=== PATIENT | male | born 1985 | race Caucasian/White ===

== ENCOUNTER 2018-04-10 16:51 | Observation (INO) ==
[2018-04-10] MEDS ORDERED: Isovue-370 500 ML INFUS..BTL IV ONE (17:55)
--- NOTE | 2018-04-10 17:55 | Emergency Department Note ---
Disposition Clinical Impression: Abdominal pain Disposition: Still a Patient Condition: Fair Referrals: Hawa Parnell, HEAD BOOKKEEPER [Family Provider] - NONE,PCP [Primary Care Provider] - Forms: ED Satisfaction Letter, Work/School Release Abdominal Pain HPI - General Chief Complaint: ED Abdominal Pain Stated Complaint: abd pain Time Seen by Provider: 04/10/18 17:07 - History of Present Illness HPI Narrative: 33 YO M presenting with abdominal pain with history of IVDU (opiods and methamphetamines), possible hepatitis B diagnosis. Pain started 2 days ago rated, was midepigastric, rated 4-6/10, and constant. Patient states that it's worsened with liquid or oral intake. He has vomited around 5x, most recently clear. Patient states last drank alcohol 2 weeks ago drinking 5 shots of hard liquor. Last drug use was 2 months ago and was methamphetamine via IV route. He states he is having bowel movements but notes that he is more constipated than usual. He was seen by a urgent care facility today and they told him that his bilirubin was elevated, however no mention of labs were on his discharge summary. Patient denies any fever, night sweats. Pt Subjective Complaint: abdominal pain, flank pain, other Location: periumbilical Pain Scale: 6 Radiation: none Migration to: no migration Improves with: nothing Worsens with: eating Associated symptoms: Reports: nausea, vomiting, constipation Treatments prior to arrival: NSAIDs - Related Data Allergies Allergy/AdvReac Type Severity Reaction Status Date / Time No Known Allergies Allergy Verified 04/10/18 13:25 Constitutional: Reports: as per HPI Cardiovascular: Denies: chest pain, palpitations Gastrointestinal: Reports: as per HPI Abdominal Pain PMH - Past Medical History Medical history: Reports: hypertension Male Surgical History: Reports: no surgical history Psychiatric history: Reports: no psych history - Social History Smoking status: Current every day smoker Alcohol use: Reports: none Drug use: Reports: methamphetamine, IV Drug Use Physical Exam - General Limitations: no limitations General appearance: alert, in distress - Head Head exam: atraumatic - Chest Chest inspection: Present: normal inspection, symmetric chest wall rise - Respiratory Respiratory exam: Present: normal lung sounds bilaterally - Cardiovascular Cardiovascular exam: Present: regular rate, normal rhythm, normal heart sounds - Abdominal Exam Abdominal exam: Present: soft, tenderness, normal bowel sounds, Nick's sign. Absent: distention, rigidity Abdominal tenderness: Present: RUQ, LUQ - Neurological Exam Neurological exam: Present: alert, oriented X3 - Psychiatric Psychiatric exam: Present: normal affect, normal mood Course Course Narrative: 33 YO M presenting with abdominal pain - Positive nick's sign + RUQ abdominal pain + LUQ - ordered abd CT with contrast to rule out all causes of upper quadrant abdominal pain - Patient reports being told that he may have hepatitis B - will order hepatitis panel - Fluids ordered - patient hasn't drank more than sips of liquids for 2 days - lipase, lfts ordered - Reevaluation(s) Reevaluation #1: Urine dipstick came back suggesting need for urine culture - ordered. Reevaluation #2: Pending abdominal CT for ddx cholecystitis vs other upper quadrant pathology Vital Signs Temperature 97.9 F 04/10/18 17:22 Pulse Rate 83 04/10/18 17:22 Respiratory Rate 16 04/10/18 17:22 Blood Pressure 122/83 04/10/18 17:22 O2 Sat by Pulse Oximetry 98 04/10/18 17:22 Temperature 97.9 F 04/10/18 18:23 Pulse Rate 80 04/10/18 18:23 Respiratory Rate 18 04/10/18 18:23 Blood Pressure 131/92 04/10/18 18:23 O2 Sat by Pulse Oximetry 98 04/10/18 18:23 Oxygen Delivery Oxygen Delivery Room Air Abdominal Pain - Lab Data Result diagrams: 04/10/18 18:19 04/10/18 18:19 Lab Results 04/10/18 04/10/18 04/10/18 Range/Units 18:19 18:19 19:14 WBC 6.5 (4.3-11.1) K/mcL RBC 5.48 (4.19-5.50) M/mcL Hgb 16.7 (12.9-16.9) g/dL Hct 49.5 (37.5-50.1) % MCV 90.3 (83.0-100.0) fL MCH 30.5 (28.0-33.3) pg MCHC 33.7 (31.6-35.5) g/dL RDW 14.4 (11.5-14.5) % Plt Count 202 (140-400) K/mcL MPV 10.2 (9.4-12.4) fL Immature Gran % 0.5 (0-4) % Seg Neutrophils % 57.7 % Lymphocytes % 28.5 % Monocytes % 10.9 % Eosinophils % 1.8 % Basophils % 0.6 % Neutrophils # 3.8 (1.6-8.9) K/mcL Lymphocytes # 1.9 (0.6-4.6) K/mcL Monocytes # 0.7 (0.0-1.3) K/mcL Eosinophils # 0.1 (0.0-0.6) K/mcL Basophils # 0.0 (0.0-0.2) K/mcL Reactive Lymphocytes Present A (Not Present) Sodium 140 (136-145) mEq/L Potassium 3.8 (3.5-5.1) mEq/L Chloride 104 (98-107) mEq/L Carbon Dioxide 26 (23-29) mEq/L BUN 14 (6-20) mg/dL Creatinine 1.05 (0.70-1.30) mg/dL Est GFR ( Amer) > 60 (> 60) Est GFR (Non-Af Amer) > 60 (> 60) BUN/Creatinine Ratio 13 (6-26) Glucose 109 H (70-105) mg/dL Calculated Osmolality 291 (280-300) Calcium 9.2 (8.6-10.3) mg/dL Total Bilirubin 2.6 H (0.3-1.0) mg/dL Direct Bilirubin 1.6 H (0.0-0.2) mg/dL Indirect Bilirubin 1.0 (0.0-1.2) mg/dL AST 1488 H (13-39) Units/L ALT > 500 H (7-52) Units/L Alkaline Phosphatase 293 H (34-104) Units/L Troponin I < 0.03 (< 0.04) ng/mL Serum Total Protein 7.5 (6.4-8.9) g/dL Albumin 4.3 (3.5-5.7) g/dL Globulin 3.2 (2.4-3.5) g/dL Albumin/Globulin Ratio 1.3 (1.1-2.2) Lipase 23 (11-82) Units/L Urine Color [place] A (Yellow) Urine Clarity Cloudy A (Clear) Urine pH 5.5 (5.0-8.0) pH Units Ur Specific [place] 1.026 H (1.010-1.025) Urine Protein 30 H (Neg-Trace) mg/dL Urine Glucose (UA) Normal (Normal) mg/dL Urine Ketones Trace H (Negative) mg/dL Urine Blood Negative (Negative) Urine Nitrite Positive A (Negative) Urine Bilirubin Moderate H (Negative) Urine Urobilinogen Normal (Normal) mg/dL Ur Leukocyte Esterase Small H (Negative) Urine Microscopic WBC 0-3 (0-3) per hpf Ur Transition Epith Cell Few (None-Few) per hpf Urine Bacteria Few (None-Few) per hpf Urine Mucus Moderate H (Few) Ur Culture Indicated? YES A (NO) - EKG Data EKG attestation: Yes I reviewed and interpreted this EKG. EKG results narrative: EKG shows sinus rhythm. Normal ID, QRS, QT intervals. Left anterior fascicular block. RSR in V1 and V2 noted, most likely not pathologic - no T wave inversion or q or T wave inversion. EKG shows normal: sinus rhythm, QRS complexes ( ) Rate: normal Attestation Statement - Attestation Attestation: I, Iron Jang, examined this patient and my medical decision-making was reviewed with the FITNESS SUPERVISOR/PA/Advanced Practice Nurse/Resident Physician. I agree with the documented findings, disposition and treatment plan as described except to the extent set forth below. 33-year-old male presents emergency Department with concerns of epigastric and right upper quadrant abdominal pain. Patient states symptoms started quickly over the past few days, they were not related to by mouth intake. Patient reports a history of EtOH use however last time he drank was about 1-2 weeks ago. He has a history of previous IV drug use last use was about 2 months ago. Patient had hepatitis testing done 2 months ago which was negative for hepatitis A, B, C at that time. Patient reports subjective fever however he did not take his temperature prior to arrival. He is been unable to keep down by mouth intake over the past few days. No history of gallbladder disease in the past. No history of pancreatitis. CT of the abdomen and pelvis did not reveal acute abnormality. Patient had significant elevation of his AST and ALT as well as his alkaline phosphatase. Patient will be admitted for further evaluation of possible acute hepatitis.
[2018-04-10] MEDS ORDERED: 0.9 % Sodium Chloride 1,000 ML IVC ONE (17:58)
[2018-04-10] MEDS ORDERED: Ondansetron 4 MG/2 ML VIAL IVP ONE (18:25)
[2018-04-10 18:43] LABS: Basophils % 0.6 %; Eosinophils # 0.1 K/mcL (0.0-0.6); Eosinophils % 1.8 %; Hematocrit 49.5 % (37.5-50.1); Hemoglobin 16.7 g/dL (12.9-16.9); Immature Granulocytes % 0.5 % (0-4); Lymphocytes # 1.9 K/mcL (0.6-4.6); Lymphocytes % 28.5 %; Mean Corpuscular HGB Conc 33.7 g/dL (31.6-35.5); Mean Corpuscular Hemoglobin 30.5 pg (28.0-33.3); Mean Corpuscular Volume 90.3 fL (83.0-100.0); Mean Platelet Volume 10.2 fL (9.4-12.4); Monocytes # 0.7 K/mcL (0.0-1.3); Monocytes % 10.9 %; Neutrophils # 3.8 K/mcL (1.6-8.9); Platelet Count 202 K/mcL (140-400); Red Blood Count 5.48 M/mcL (4.19-5.50); Red Cell Distribution Width 14.4 % (11.5-14.5); Segmented Neutrophils % 57.7 %
[2018-04-10 18:58] LABS: Troponin I < 0.03 ng/mL (< 0.04)
[2018-04-10 19:07] LABS: Reactive Lymphocytes Present (Not Present)
[2018-04-10 19:14] LABS: Alanine Aminotransferase > 500 Units/L (7-52); Albumin 4.3 g/dL (3.5-5.7); Albumin/Globulin Ratio 1.3 (1.1-2.2); Alkaline Phosphatase 293 Units/L (34-104); Aspartate Amino Transferase 1488 Units/L (13-39); BUN/Creatinine Ratio 13 (6-26); Bilirubin,Direct 1.6 mg/dL (0.0-0.2); Bilirubin,Total 2.6 mg/dL (0.3-1.0); Blood Urea Nitrogen 14 mg/dL (6-20); Calcium 9.2 mg/dL (8.6-10.3); Carbon Dioxide 26 mEq/L (23-29); Chloride 104 mEq/L (98-107); Globulin 3.2 g/dL (2.4-3.5); Glucose 109 mg/dL (70-105); Lipase 23 Units/L (11-82); Osmolality,Calculated 291 (280-300); Potassium 3.8 mEq/L (3.5-5.1); Sodium 140 mEq/L (136-145); Total Protein 7.5 g/dL (6.4-8.9); eGFR For Non-African Americans > 60 (> 60)
[2018-04-10 19:26] LABS: Bilirubin,Urine Moderate (Negative); Blood,Urine Negative (Negative); Clarity,Urine Cloudy (Clear); Color,Urine Orange (Yellow); Glucose,Urine (UA) Normal (Normal); Ketones,Urine Trace mg/dL (Negative); Leukocyte Esterase,Urine Small (Negative); Nitrite,Urine Positive (Negative); PH,Urine 5.5 pH Units (5.0-8.0); Protein,Urine 30 mg/dL (Neg-Trace); Specific Gravity,Urine 1.026 (1.010-1.025); Urobilinogen,Urine Normal (Normal)
[2018-04-10 19:43] LABS: Bacteria,Urine Few per hpf (None-Few); Mucus,Urine Moderate (Few); WBC,Urine 0-3 per hpf (0-3)
[2018-04-10 19:44] LABS: Transitional Epi Cells,Urine Few per hpf (None-Few)
[2018-04-10] MEDS ORDERED: Ringers Solution, Lactated 1,000 ML IVC SCH (22:15)
[2018-04-10] MEDS ORDERED: *HR* OxyCODONE Immed Rel 5 MG TABLET PO PRN (22:15)
[2018-04-10] MEDS ORDERED: Ibuprofen 400 MG TABLET PO PRN (22:15)
[2018-04-10] MEDS ORDERED: *HR* Promethazine 25 MG/ML VIAL IVP PRN (22:18)
[2018-04-10] MEDS ORDERED: GI Cocktail 40 ML EACH PO ONE (22:18)
--- NOTE | 2018-04-10 22:39 | Internal Med History&Physical ---
Date of Encounter: 04/10/18 Time of Encounter: 22:37 Internal Medicine - H&P: HPI Chief complaint: abdominal pain Admitted From: Home Plans for Post Hospital Care: Home History of present illness: 33 year old man with a history of illicit drug use (opioids and methamphetamines but now recovering per family) who presents with the complaint of 2 days of abdominal pain that he localizes predominantly to his epigastrium that has been constant and associated with nausea and vomiting with an inability to tolerate PO. He states he has not drank alcohol for over a week and has not used illicit drugs in a few months. He reports that his urine is darker in color but without dysuria. He denies diarrhea and changes to stool color. He denies any sick contacts. He denies fever, chills and night sweats. On arrival here he was seen to have normal vital signs however his lab work was remarkable for a significant elevation in LFTs. A CT scan done did not show any anomalies. He is admitted for further monitoring. Past Med Surg Social Fam HX - Past Medical History Medical history: hypertension Psychiatric history: no psych history - Social History Smoking Status: Current every day smoker Smokeless Tobacco Status: (1 pack) Alcohol use: none Drug use: methamphetamine, IV Drug Use Internal Medicine - H&P: Meds 3 Allergy/AdvReac Type Severity Reaction Status Date / Time No Known Allergies Allergy Verified 04/10/18 13:25 All Systems PM: A 10-system review of systems was performed and is negative for pertinent findings except as documented above in the HPI. - Constitutional Vitals: Temp Pulse Resp BP Pulse Ox 97.9 F 80 18 131/92 98 04/10/18 18:23 04/10/18 18:23 04/10/18 18:23 04/10/18 18:23 04/10/18 18:23 Exam: Vitals: Reviewed General: Well developed man, in notable discomfort Skin: Flushed and warm. HEENT: Dry mucous membranes. No conjunctivae pallor. Neck: No lymphadenopathy. No JVD. No carotid bruits. No palpable thyroid. Chest: Normal thoracic expansion. Normal breath sounds. Clear to auscultation. Heart: Normal S1 & S2; rhythmic. No rubs or murmurs. Abdomen: Non-distended, soft and mildly tender to palpation in the epigastrium with no peritoneal reaction. Liver is normal in size. Spleen is not palpable. Extremities: No clubbing, cyanosis or edema. No calf tenderness. Normal distal pulses. Neurological: Awake, alert and oriented to person, place and time. No focal deficits. Psych: Affect appropriate. Internal Med - H&P Results - Labs CBC & Chem 7: 04/10/18 18:19 04/10/18 18:19 - Assessment and plan (1) Abnormal LFTs Current Visit: Yes Status: Acute Assessment and plan: Significant elevation noted in a more hepatocellular pattern more so that cholestatic. Correlates with the absent biliary findings on CT. Based on risk factors and I am concerned for an acute viral hepatitis, especially A given the recent epidemic and also questionable history of a pre-existing viral illess likely secondary to injection drug use. Will send hep viral panel Aggressive fluid resuscitation Avoid hepatotoxic meds Recheck LFTs and monitor INR. Check liver ultrasound. Further work up based on negativity of these results. (2) Abdominal pain Current Visit: Yes Status: Acute Assessment and plan: Likely related due inflammatory hepatic process. Will provide pain relief as needed and attempt to control symptoms. Further management as above. Qualifiers: Abdominal location: epigastric Qualified Code(s): R10.13 - Epigastric pain (3) Substance use disorder Current Visit: Yes Status: Chronic Assessment and plan: Will monitor clinically. Check UDS. Ongoing counseling provided. (4) Dehydration Current Visit: Yes Status: Acute Assessment and plan: Notable on clinical exam. IV LR ordered. - Time Spent With Patient Total time spent is greater than 50% in coordination of care (as documented) at patient's floor/unit and/or counseling patient: Greater than 35 minutes
[2018-04-10 22:51] LABS: Amphetamine Screen,Urine Negative ng/mL (Cutoff=1000); Barbiturate Screen,Urine Negative ng/mL (Cutoff=200); Benzodiazepines Screen,Urine Negative ng/mL (Cutoff=200); Cannabinoid Screen,Urine Negative ng/mL (Cutoff = 50); Cocaine Screen,Urine Negative ng/mL (Cutoff= 300); Opiate Screen,Urine Negative ng/mL (Cutoff=300); Phencyclidine Screen,Urine Negative ng/mL (Cutoff=25)
[2018-04-10] MEDS: Ringers Solution, Lactated 1,000 ML IVC SCH (23:58)
[2018-04-11] MEDS: Ringers Solution, Lactated 1,000 ML IVC SCH (04:48)
[2018-04-11 05:28] LABS: Basophils % 0.6 %; Eosinophils # 0.2 K/mcL (0.0-0.6); Hematocrit 41.6 % (37.5-50.1); Immature Granulocytes % 0.4 % (0-4); Lymphocytes # 1.7 K/mcL (0.6-4.6); Lymphocytes % 34.8 %; Mean Corpuscular HGB Conc 32.9 g/dL (31.6-35.5); Mean Corpuscular Hemoglobin 29.8 pg (28.0-33.3); Mean Corpuscular Volume 90.6 fL (83.0-100.0); Mean Platelet Volume 10.3 fL (9.4-12.4); Monocytes # 0.6 K/mcL (0.0-1.3); Monocytes % 12.6 %; Neutrophils # 2.4 K/mcL (1.6-8.9); Platelet Count 179 K/mcL (140-400); Red Blood Count 4.59 M/mcL (4.19-5.50); Red Cell Distribution Width 14.6 % (11.5-14.5); Segmented Neutrophils % 48.6 %
[2018-04-11 05:36] LABS: Hemoglobin 13.7 g/dL (12.9-16.9)
[2018-04-11 05:59] LABS: Platelet Estimate Normal (Normal); Reactive Lymphocytes Present (Not Present)
[2018-04-11] MEDS ORDERED: *HR* Heparin 5,000 UNIT/ML VIAL SQ SCH (06:00)
[2018-04-11 06:07] LABS: Alanine Aminotransferase > 500 Units/L (7-52); Albumin 3.3 g/dL (3.5-5.7); Albumin/Globulin Ratio 1.3 (1.1-2.2); Alkaline Phosphatase 223 Units/L (34-104); Aspartate Amino Transferase 1244 Units/L (13-39); BUN/Creatinine Ratio 14 (6-26); Bilirubin,Direct 1.9 mg/dL (0.0-0.2); Bilirubin,Total 2.9 mg/dL (0.3-1.0); Blood Urea Nitrogen 11 mg/dL (6-20); Carbon Dioxide 25 mEq/L (23-29); Chloride 107 mEq/L (98-107); Ethanol < 10 mg/dL (Less than 10); Globulin 2.5 g/dL (2.4-3.5); Glucose 87 mg/dL (70-105); Magnesium 2.1 mg/dL (1.6-2.6); Osmolality,Calculated 287 (280-300); Potassium 3.8 mEq/L (3.5-5.1); Sodium 139 mEq/L (136-145); Total Protein 5.8 g/dL (6.4-8.9); eGFR For Non-African Americans > 60 (> 60)
[2018-04-11] MEDS ORDERED: *HR* LORazepam 2 MG/ML VIAL IVP PRN (11:28)
[2018-04-11 11:37] VITALS: BP 119/68
--- NOTE | 2018-04-11 13:15 | Discharge Summary ---
- NOTES TO OUTPATIENT PROVIDER Notes to Outpatient Provider: please f/u with PCP in 2-3 days. Also please go for f/u lab work CMP in 2 days Date of Encounter: 04/11/18 Time of Encounter: 13:11 - Discharge Diagnosis (1) Acute hepatitis Priority: Primary Status: Acute (2) Abdominal pain Priority: Primary Status: Acute Qualifiers: Abdominal location: epigastric Qualified Code(s): R10.13 - Epigastric pain (3) Abnormal LFTs Priority: Primary Status: Acute (4) Substance use disorder Priority: Secondary Status: Chronic (5) Dehydration Priority: Secondary Status: Acute Hospital course: Mr. Mills is a 33 year old man with a history of illicit drug use (opioids and methamphetamines but now recovering per family and pt) who presented to ER with the complaint of 2 days of abdominal pain that he localizes predominantly to his epigastrium that has been constant and associated with nausea and vomiting with an inability to tolerate PO intake. He states he has not drank alcohol for over a week and has not used illicit drugs in a few months. In the ER his lab work was remarkable for a significant elevation in LFTs possible acute hepatitis. A CT scan of Abd done did not show any anomalies. His US of liver showed mild GB wall thickening, no signs of cholecystitis, no cholelithiasis noticed. His AST and ALT started coming down slowly, however his total Bili is still @ 2.9. His Viral hepatitis panel is still pending. Pt wanted to leave AMA , do not want to stay until his numbers get better. I did give him f/u labs Rx fro CMP in 2 days. Counseled not to drink alcohol, avoid too much tylenol / hepatotoxic meds. - Time Spent with Patient Total time spent providing and/or coordinating discharge services: - Discharge Medications Home Medications: No Known Home Drugs 04/10/18 [History] Allergies/Adverse Reactions: 3 Allergy/AdvReac Type Severity Reaction Status Date / Time No Known Allergies Allergy Verified 04/10/18 13:25 Date of admission: 04/10/18 22:10 Primary care physician: PCP NONE - Constitutional Vitals: Temp Pulse Resp BP Pulse Ox 98.3 F 69 16 119/68 95 04/11/18 11:35 04/11/18 11:35 04/11/18 11:35 04/11/18 11:35 04/11/18 11:35 General appearance: Present: cooperative, A&O X 3, no acute distress, answers questions appropriately Exam: see below - Head Head exam: Present: atraumatic, normal inspection - Neck Neck exam general surgery: Present: supple - Respiratory Respiratory exam: Present: decreased breath sounds. Absent: rales, respiratory distress, rhonchi, wheezes - Cardiovascular Cardiovascular exam: Present: RRR, +S1, +S2. Absent: tachycardia - GI/Abdominal GI/Abdominal exam: Present: normal bowel sounds, soft, tenderness (mild tenderness at epigastric region). Absent: rebound, rigid - Extremities Exam Extremities exam: Absent: calf tenderness, pedal edema, tenderness - Back Exam Back exam: Absent: CVA tenderness (L), CVA tenderness (R) - Neurological Exam Neurological exam: Present: alert, oriented X3 - Psychiatric Psychiatric exam: Present: normal affect, normal mood - Patient Status Disposition: Home, Self-Care Condition: Fair Overall status at discharge: patient is progressing back to baseline - Discharge Instructions Follow Up With: NONE,PCP [Primary Care Provider] - Hawa Parnell, BONE PROCESS OPERATOR [Family Provider] - - Diet and Activity Activity: increase activity as tolerated Diet: low fat, low cholesterol, low salt diet
[2018-04-12 03:01] LABS: Hepatitis B Core IgM Nonreactive (Nonreactive); Hepatitis B Surface Antigen Nonreactive (Nonreactive); Hepatitis C Virus Antibody Nonreactive (Nonreactive)
[2018-04-12 03:16] LABS: Hepatitis A Antibody IgM Reactive (Nonreactive)
--- NOTE | 2018-04-14 23:47 | Electrocardiograph Report ---
[place] [id number] Test Date: 2018-04-10 Pat Name: Valentín Mills Department: [id number] Room: 2A63 Gender: M Coroner Forensic Technician: : 1985 Requested By: Iron Jang Order Number: [id number] Reading MD: Jeanette Carmona Measurements Intervals [place] Rate: 85 P: 36 ME: 153 QRS: -47 QRSD: 92 T: 6 QT: 376 QTc: 448 Interpretive Statements Sinus rhythm Probable left atrial enlargement Left anterior fascicular block RSR' in V1 or V2, right VCD or RVH Electronically Signed On 04-14-2018 23:45:47 EDT by Jeanette Carmona
== END 2018-04-11 13:47 | disposition home or self-care (01) ==
LOC: 2ANU 16:51 → EMEROOARM 16:51 → SUATTDRO 22:10 → 2ANU 22:56
PROVIDERS: ADMIT Internal Medicine; ATTEND Family Medicine

== ENCOUNTER 2021-04-28 16:38 | Inpatient (IN) ==
[2021-04-28 18:07] LABS: Mean Corpuscular HGB Conc 32.1 g/dL (31.6-35.5); Mean Platelet Volume 8.9 fL (9.4-12.4); Red Cell Distribution Width 14.2 % (11.5-14.5)
[2021-04-28 18:09] LABS: Hematocrit 32.1 % (37.5-50.1); Hemoglobin 10.3 g/dL (12.9-16.9); Mean Corpuscular Hemoglobin 28.1 pg (28.0-33.3); Mean Corpuscular Volume 87.7 fL (83.0-100.0); Platelet Count 632 K/mcL (140-400); Red Blood Count 3.66 M/mcL (4.19-5.50); White Blood Count 29.7 K/mcL (4.3-11.1)
[2021-04-28 18:14] LABS: INR 1.3; Prothrombin Time 14.7 Seconds (9.4-12.1)
[2021-04-28 18:47] LABS: BUN/Creatinine Ratio 14 (6-26); Blood Urea Nitrogen 16 mg/dL (6-20); Calcium 8.8 mg/dL (8.6-10.3); Carbon Dioxide 28 mEq/L (23-29); Chloride 92 mEq/L (98-107); Glucose 177 mg/dL (70-105); Osmolality,Calculated 278 (280-300); Potassium 3.9 mEq/L (3.5-5.1); Sodium 131 mEq/L (136-145); eGFR For African Americans > 60 (> 60); eGFR For Non-African Americans > 60 (> 60)
[2021-04-28] MEDS ORDERED: Isovue-370 500 ML BOTTLE IVP ONE (19:03)
[2021-04-28] MEDS ORDERED: 0.9 % Sodium Chloride 1,000 ML IV ONE (19:20)
[2021-04-28 19:40] LABS: Lymphocytes # 1.8 K/mcL (0.6-4.6); Monocytes # 0.9 K/mcL (0.0-1.3); Platelet Estimate Marked Increase (Normal)
[2021-04-28 21:08] LABS: C-Reactive Protein > 300 mg/L (Less than 10); Thyroid Stimulating Hormone 1.208 mcIU/mL (0.340-5.600)
[2021-04-28] MEDS ORDERED: *HR* HYDROmorphone (PF) 1 MG/ML SYRINGE IVP ONE ×2 (21:25→23:28)
[2021-04-28] MEDS ORDERED: Cefepime HCl 2,000 MG in Water for inj. (sterile) 20 ML IVP ONE (22:09)
[2021-04-29] MEDS ORDERED: Gadolinium Contrast Agent (WT Based) IV PRN (00:57)
[2021-04-29] MEDS ORDERED: *HR* FentaNYL (PF) 100 MCG/2 ML VIAL IVP ONE ×2 (01:09→04:50)
[2021-04-29 01:42] LABS: Influenza A PCR Negative (Negative); Influenza B PCR Negative (Negative); Resp. Syncytial Virus PCR Negative (Negative); SARS-CoV-2 by PCR (In House) Negative (Negative)
[2021-04-29] MEDS ORDERED: MetroNIDAZOLE 500 MG/100 ML 500 MG/100 ML BAG IVPB ONE (02:37)
[2021-04-29] MEDS ORDERED: Naloxone 0.4 MG/ML INJ IVP PRN (03:37)
[2021-04-29] MEDS ORDERED: Ondansetron 4 MG/2 ML VIAL IVP PRN (03:37)
[2021-04-29] MEDS ORDERED: Ringers Solution, Lactated 1,000 ML IVC SCH (03:45)
[2021-04-29] MEDS ORDERED: Perflutren Lipid Microsphere 1.3 ML in 0.9 % Sodium Chloride 8.7 ML IVP PRN (03:46)
[2021-04-29] MEDS ORDERED: Morphine Sulfate 2 MG/ML SYRINGE IVP ONE (03:56)
[2021-04-29] MEDS ORDERED: Acetaminophen 325 MG TABLET PO PRN (03:57)
[2021-04-29] MEDS ORDERED: 0.9 % Sodium Chloride 1,000 ML IVC SCH (04:00)
[2021-04-29] MEDS: *HR* OxyCODONE Immed Rel 5 MG TABLET PO PRN ×3 (04:00→19:56)
[2021-04-29] MEDS ORDERED: *HR* LORazepam 2 MG/ML VIAL IVP PRN (04:51)
[2021-04-29 05:10] LABS: Alanine Aminotransferase 20 Units/L (7-52); Albumin 2.9 g/dL (3.5-5.7); Albumin/Globulin Ratio 0.7 (1.1-2.2); Alkaline Phosphatase 140 Units/L (34-104); Aspartate Amino Transferase 19 Units/L (13-39); BUN/Creatinine Ratio 17 (6-26); Bilirubin,Total 0.8 mg/dL (0.3-1.0); Blood Urea Nitrogen 14 mg/dL (6-20); Calcium 8.3 mg/dL (8.6-10.3); Carbon Dioxide 26 mEq/L (23-29); Chloride 96 mEq/L (98-107); Globulin 4.2 g/dL (2.4-3.5); Glucose 109 mg/dL (70-105); Osmolality,Calculated 273 (280-300); Potassium 3.6 mEq/L (3.5-5.1); Sodium 131 mEq/L (136-145); Total Protein 7.1 g/dL (6.4-8.9); eGFR For African Americans > 60 (> 60); eGFR For Non-African Americans > 60 (> 60)
[2021-04-29] MEDS: *HR* HYDROmorphone (PF) 1 MG/ML SYRINGE IVP PRN ×3 (08:54→20:55)
[2021-04-29] MEDS: *HR* Enoxaparin 40 MG/0.4 ML SYRINGE SQ SCH (08:59)
[2021-04-29] MEDS ORDERED: Cefepime HCl 2,000 MG in Water for inj. (sterile) 20 ML IVP SCH (11:00)
[2021-04-29] MEDS ORDERED: *HR* Midazolam HCl 2 MG/2 ML VIAL ONE (11:54)
[2021-04-29] MEDS ORDERED: Lidocaine Viscous Oral Soln 15 ML SOLUTION MM PRN (12:08)
[2021-04-29] MEDS ORDERED: 0.9 % Sodium Chloride 500 ML IVC ONE (12:08)
[2021-04-29] MEDS: Cefepime HCl 2,000 MG in Water for inj. (sterile) 20 ML IVP SCH ×2 (16:50→23:11)
[2021-04-29] MEDS ORDERED: Cefepime HCl 2,000 MG in Water for inj. (sterile) 20 ML IVP ONE (19:14)
[2021-04-29] MEDS ORDERED: *HR* LORazepam 2 MG/ML VIAL IVP ONE (23:28)
[2021-04-30 00:53] LABS: Amphetamine Screen,Urine Negative ng/mL (Cutoff=1000); Barbiturate Screen,Urine Negative ng/mL (Cutoff=200); Benzodiazepines Screen,Urine Positive ng/mL (Cutoff=200); Cannabinoid Screen,Urine Positive ng/mL (Cutoff = 50); Cocaine Screen,Urine Negative ng/mL (Cutoff= 300); Opiate Screen,Urine Positive ng/mL (Cutoff=300); Phencyclidine Screen,Urine Negative ng/mL (Cutoff=25)
[2021-04-30] MEDS: *HR* HYDROmorphone (PF) 1 MG/ML SYRINGE IVP PRN ×2 (00:58→06:25)
[2021-04-30] MEDS ORDERED: *HR* LORazepam 2 MG/ML VIAL IVP ONE (03:27)
[2021-04-30] MEDS: Cefepime HCl 2,000 MG in Water for inj. (sterile) 20 ML IVP SCH ×2 (06:08→21:02)
[2021-04-30] MEDS: *HR* Enoxaparin 40 MG/0.4 ML SYRINGE SQ SCH (06:08)
[2021-04-30] MEDS: *HR* OxyCODONE Immed Rel 5 MG TABLET PO PRN (09:04)
[2021-04-30 09:18] LABS: Hematocrit 27.8 % (37.5-50.1); Hemoglobin 9.2 g/dL (12.9-16.9); Mean Corpuscular HGB Conc 33.1 g/dL (31.6-35.5); Mean Corpuscular Volume 84.8 fL (83.0-100.0); Platelet Count 612 K/mcL (140-400); Red Blood Count 3.28 M/mcL (4.19-5.50); Red Cell Distribution Width 14.3 % (11.5-14.5); White Blood Count 26.5 K/mcL (4.3-11.1)
[2021-04-30 09:26] LABS: BUN/Creatinine Ratio 21 (6-26); Blood Urea Nitrogen 12 mg/dL (6-20); Carbon Dioxide 25 mEq/L (23-29); Chloride 97 mEq/L (98-107); Glucose 95 mg/dL (70-105); Osmolality,Calculated 270 (280-300); Potassium 3.1 mEq/L (3.5-5.1); Sodium 130 mEq/L (136-145); eGFR For African Americans > 60 (> 60); eGFR For Non-African Americans > 60 (> 60)
[2021-04-30] MEDS ORDERED: Lidocaine -MPF 2% 2 ML VIAL ONE (09:31)
[2021-04-30] MEDS ORDERED: *HR* Rocuronium Bromide 50 MG/5 ML VIAL ONE (09:31)
[2021-04-30] MEDS ORDERED: *HR* Midazolam HCl 5 MG/5 ML VIAL IVP ONE (09:32)
[2021-04-30] MEDS ORDERED: *HR* Propofol 200 MG/20 ML VIAL IVP ONE (09:32)
[2021-04-30] MEDS ORDERED: *HR* FentaNYL (PF) 100 MCG/2 ML VIAL ONE (09:32)
[2021-04-30] MEDS ORDERED: Ondansetron 4 MG/2 ML VIAL ONE (09:32)
[2021-04-30] MEDS ORDERED: *HR* HYDROMORPHONE 2 MG/ML VIAL ONE ×2 (10:22→12:39)
[2021-04-30] MEDS ORDERED: Albuterol 2.5 MG/3 ML NEBULIZER IH PRN (10:25)
[2021-04-30] MEDS ORDERED: *HR* OxyCODONE Immed Rel 5 MG TABLET PO PRN (10:25)
[2021-04-30] MEDS ORDERED: Ketorolac 15 MG/ML VIAL IVP PRN (10:25)
[2021-04-30] MEDS ORDERED: Ondansetron 4 MG/2 ML VIAL IVP PRN ×2 (10:25→15:48)
[2021-04-30] MEDS ORDERED: Acetaminophen IV 1,000 MG/100 ML BAG IVPB ONE (10:27)
[2021-04-30 10:42] LABS: HIV-1&2 Antibody & p24 Ag Nonreactive (Nonreactive); Lymphocytes # 1.6 K/mcL (0.6-4.6); Monocytes # 1.6 K/mcL (0.0-1.3); Neutrophils # 23.3 K/mcL (1.6-8.9); Platelet Estimate Increased (Normal)
[2021-04-30] MEDS ORDERED: *HR* HYDROmorphone (PF) 1 MG/ML SYRINGE IVP PRN (10:55)
[2021-04-30] MEDS ORDERED: *HR* OxyCODONE/APAP 10/325 TABLET PO PRN (10:55)
[2021-04-30] MEDS ORDERED: Dexmedetomidine HCl 400 MCG/100 ML MLS IVC ONE (10:56)
[2021-04-30] MEDS ORDERED: Albumin Human 5% 25.0 GM/500 ML IV.SOLN ONE (10:56)
[2021-04-30] MEDS ORDERED: Lidocaine HCL 4 ML Topical Solution (Laryng-O-Jet Kit Sterile Pak) TP ONE (11:14)
[2021-04-30] MEDS ORDERED: *HR* OxyCODONE/APAP 10/325 TABLET PO SCH (12:00)
[2021-04-30] MEDS: *HR* HYDROmorphone PF 0.5 MG/0.5 ML SYRINGE IVP PRN ×4 (13:08→14:23)
[2021-04-30 15:28] LABS: Hepatitis C Virus Antibody Reactive (Nonreactive)
[2021-04-30] MEDS ORDERED: Naloxone 0.4 MG/ML INJ IVP PRN (15:48)
[2021-04-30] MEDS: Ipratropium/Albuterol Neb 3 ML IH SCH ×3 (16:19→23:47)
[2021-04-30] MEDS: Gabapentin 400 MG CAPSULE PO SCH ×2 (16:37→19:26)
[2021-04-30] MEDS: *HR* OxyCODONE/APAP 10/325 TABLET PO PRN ×2 (16:37→21:01)
[2021-04-30] MEDS: *HR* Heparin 5,000 UNIT/ML VIAL SQ SCH ×2 (16:37→21:01)
[2021-04-30] MEDS: 0.9 % Sodium Chloride 1,000 ML IVC SCH (16:38)
[2021-04-30] MEDS ORDERED: Vancomycin 1,750 MG/517.5 ML IV.SOLN IVPB SCH (17:00)
[2021-04-30] MEDS: Ketorolac 15 MG/ML VIAL IVP SCH ×2 (18:25→23:31)
[2021-04-30] MEDS: Sennosides/Docusate Sodium TABLET PO SCH (19:26)
[2021-04-30] MEDS: Famotidine 20 MG TABLET PO SCH (19:27)
[2021-04-30] MEDS: *HR* HYDROmorphone 2 MG/ML SYRINGE IVP PRN ×2 (19:28→23:31)
[2021-04-30] MEDS: Dexmedetomidine HCl 400 MCG/100 ML MLS IVC SCH (21:04)
[2021-04-30] MEDS: *HR* Acetylcysteine 20% 600 MG/3 ML ORAL SYRINGE PO SCH (21:10)
[2021-05-01] MEDS: *HR* OxyCODONE/APAP 10/325 TABLET PO PRN ×4 (03:08→20:05)
[2021-05-01] MEDS: Ipratropium/Albuterol Neb 3 ML IH SCH ×6 (03:55→23:23)
[2021-05-01] MEDS: *HR* HYDROmorphone 2 MG/ML SYRINGE IVP PRN ×4 (04:42→22:41)
[2021-05-01 05:58] LABS: Basophils % 0.1 %; Immature Granulocytes % 1.8 % (0-4); Lymphocytes % 12.7 %; Mean Corpuscular HGB Conc 33.3 g/dL (31.6-35.5); Mean Corpuscular Hemoglobin 27.9 pg (28.0-33.3); Mean Corpuscular Volume 83.6 fL (83.0-100.0); Mean Platelet Volume 9.1 fL (9.4-12.4); Monocytes # 1.2 K/mcL (0.0-1.3); Monocytes % 7.6 %; Neutrophils # 12.4 K/mcL (1.6-8.9); Platelet Count 622 K/mcL (140-400); Red Blood Count 3.59 M/mcL (4.19-5.50); Red Cell Distribution Width 14.3 % (11.5-14.5); Segmented Neutrophils % 77.8 %
[2021-05-01] MEDS: Cefepime HCl 2,000 MG in Water for inj. (sterile) 20 ML IVP SCH ×3 (06:03→22:41)
[2021-05-01] MEDS: *HR* Heparin 5,000 UNIT/ML VIAL SQ SCH ×3 (06:04→22:42)
[2021-05-01] MEDS: Ketorolac 15 MG/ML VIAL IVP SCH ×3 (06:04→17:26)
[2021-05-01 06:25] LABS: BUN/Creatinine Ratio 29 (6-26); Blood Urea Nitrogen 15 mg/dL (6-20); Calcium 8.1 mg/dL (8.6-10.3); Carbon Dioxide 24 mEq/L (23-29); Chloride 101 mEq/L (98-107); Glucose 131 mg/dL (70-105); Osmolality,Calculated 279 (280-300); Phosphorous 4.2 mg/dL (2.7-4.5); Potassium 3.7 mEq/L (3.5-5.1); Sodium 133 mEq/L (136-145); eGFR For African Americans > 60 (> 60); eGFR For Non-African Americans > 60 (> 60)
[2021-05-01] MEDS: Gabapentin 400 MG CAPSULE PO SCH ×3 (07:47→20:05)
[2021-05-01] MEDS: Sennosides/Docusate Sodium TABLET PO SCH ×2 (07:47→20:05)
[2021-05-01] MEDS: Famotidine 20 MG TABLET PO SCH ×2 (07:47→20:05)
[2021-05-01] MEDS: *HR* Acetylcysteine 20% 600 MG/3 ML ORAL SYRINGE PO SCH ×2 (07:47→20:08)
[2021-05-01] MEDS: 0.9 % Sodium Chloride 1,000 ML IVC SCH ×2 (09:27→22:42)
[2021-05-01] MEDS: lisinopriL 5 MG TABLET PO SCH (09:28)
[2021-05-01] MEDS: Vancomycin 1,750 MG/517.5 ML IV.SOLN IVPB SCH ×2 (11:05→17:26)
[2021-05-01] MEDS: Dexmedetomidine HCl 400 MCG/100 ML MLS IVC SCH (12:10)
[2021-05-02] MEDS: *HR* OxyCODONE/APAP 10/325 TABLET PO PRN ×5 (00:33→23:00)
[2021-05-02] MEDS: Ketorolac 15 MG/ML VIAL IVP SCH ×5 (00:33→23:00)
[2021-05-02] MEDS: Dexmedetomidine HCl 400 MCG/100 ML MLS IVC SCH ×3 (02:05→23:04)
[2021-05-02] MEDS: Vancomycin 1,750 MG/517.5 ML IV.SOLN IVPB SCH (02:24)
[2021-05-02] MEDS: *HR* HYDROmorphone 2 MG/ML SYRINGE IVP PRN ×5 (03:13→20:12)
[2021-05-02] MEDS: Ipratropium/Albuterol Neb 3 ML IH SCH ×6 (04:18→23:42)
[2021-05-02 04:20] LABS: BUN/Creatinine Ratio 18 (6-26); Blood Urea Nitrogen 12 mg/dL (6-20); Calcium 7.6 mg/dL (8.6-10.3); Carbon Dioxide 24 mEq/L (23-29); Chloride 108 mEq/L (98-107); Glucose 96 mg/dL (70-105); Osmolality,Calculated 286 (280-300); Potassium 3.6 mEq/L (3.5-5.1); Sodium 138 mEq/L (136-145); eGFR For African Americans > 60 (> 60); eGFR For Non-African Americans > 60 (> 60)
[2021-05-02 04:32] LABS: Basophils # 0.1 K/mcL (0.0-0.2); Basophils % 0.6 %; Eosinophils # 0.1 K/mcL (0.0-0.6); Eosinophils % 0.5 %; Hematocrit 31.6 % (37.5-50.1); Hemoglobin 9.8 g/dL (12.9-16.9); Immature Granulocytes % 4.4 % (0-4); Lymphocytes % 21.1 %; Mean Corpuscular Hemoglobin 27.3 pg (28.0-33.3); Mean Platelet Volume 9.2 fL (9.4-12.4); Monocytes # 1.4 K/mcL (0.0-1.3); Monocytes % 9.9 %; Neutrophils # 9.2 K/mcL (1.6-8.9); Platelet Count 591 K/mcL (140-400); Red Blood Count 3.59 M/mcL (4.19-5.50); Red Cell Distribution Width 14.6 % (11.5-14.5); Segmented Neutrophils % 63.5 %; White Blood Count 14.4 K/mcL (4.3-11.1)
[2021-05-02] MEDS: Cefepime HCl 2,000 MG in Water for inj. (sterile) 20 ML IVP SCH ×3 (04:44→22:59)
[2021-05-02] MEDS: *HR* Heparin 5,000 UNIT/ML VIAL SQ SCH ×3 (04:44→22:59)
[2021-05-02] MEDS: lisinopriL 5 MG TABLET PO SCH (07:28)
[2021-05-02] MEDS: Sennosides/Docusate Sodium TABLET PO SCH ×2 (07:28→20:12)
[2021-05-02] MEDS: Gabapentin 400 MG CAPSULE PO SCH ×3 (07:28→20:12)
[2021-05-02] MEDS: Famotidine 20 MG TABLET PO SCH ×2 (07:28→20:12)
[2021-05-02] MEDS: Vancomycin 1,500 MG/265 ML IV.SOLN IVPB SCH ×2 (12:05→20:11)
[2021-05-02] MEDS: *HR* Acetylcysteine 20% 600 MG/3 ML ORAL SYRINGE PO SCH ×2 (13:10→20:12)
[2021-05-03 01:36] LABS: Alanine Aminotransferase 28 Units/L (7-52); Albumin 2.3 g/dL (3.5-5.7); Albumin/Globulin Ratio 0.7 (1.1-2.2); Alkaline Phosphatase 142 Units/L (34-104); Aspartate Amino Transferase 33 Units/L (13-39); BUN/Creatinine Ratio 14 (6-26); Bilirubin,Indirect 0.2 mg/dL (0.0-1.0); Bilirubin,Total 0.2 mg/dL (0.3-1.0); Blood Urea Nitrogen 8 mg/dL (6-20); Calcium 7.6 mg/dL (8.6-10.3); Carbon Dioxide 22 mEq/L (23-29); Chloride 105 mEq/L (98-107); Globulin 3.5 g/dL (2.4-3.5); Glucose 130 mg/dL (70-105); Magnesium 1.8 mg/dL (1.6-2.6); Osmolality,Calculated 282 (280-300); Potassium 3.3 mEq/L (3.5-5.1); Sodium 136 mEq/L (136-145); Total Protein 5.8 g/dL (6.4-8.9); eGFR For African Americans > 60 (> 60); eGFR For Non-African Americans > 60 (> 60)
[2021-05-03 01:49] LABS: Basophils # 0.1 K/mcL (0.0-0.2); Basophils % 0.8 %; Eosinophils # 0.2 K/mcL (0.0-0.6); Hematocrit 29.1 % (37.5-50.1); Hemoglobin 9.1 g/dL (12.9-16.9); Immature Granulocytes % 8.4 % (0-4); Lymphocytes # 3.1 K/mcL (0.6-4.6); Lymphocytes % 19.7 %; Mean Corpuscular HGB Conc 31.3 g/dL (31.6-35.5); Mean Corpuscular Hemoglobin 26.6 pg (28.0-33.3); Mean Corpuscular Volume 85.1 fL (83.0-100.0); Monocytes # 1.5 K/mcL (0.0-1.3); Monocytes % 9.4 %; Neutrophils # 9.4 K/mcL (1.6-8.9); Platelet Count 676 K/mcL (140-400); Red Blood Count 3.42 M/mcL (4.19-5.50); Red Cell Distribution Width 14.6 % (11.5-14.5); Segmented Neutrophils % 60.7 %; White Blood Count 15.5 K/mcL (4.3-11.1)
[2021-05-03] MEDS: Ipratropium/Albuterol Neb 3 ML IH SCH ×6 (03:27→23:37)
[2021-05-03] MEDS: *HR* HYDROmorphone 2 MG/ML SYRINGE IVP PRN ×6 (03:52→21:16)
[2021-05-03] MEDS: Vancomycin 1,500 MG/265 ML IV.SOLN IVPB SCH ×3 (03:52→18:56)
[2021-05-03] MEDS: *HR* OxyCODONE/APAP 10/325 TABLET PO PRN ×3 (06:01→18:55)
[2021-05-03] MEDS: Ketorolac 15 MG/ML VIAL IVP SCH ×3 (06:01→18:05)
[2021-05-03] MEDS: Cefepime HCl 2,000 MG in Water for inj. (sterile) 20 ML IVP SCH ×3 (06:01→21:15)
[2021-05-03] MEDS: *HR* Heparin 5,000 UNIT/ML VIAL SQ SCH ×3 (06:01→21:16)
[2021-05-03] MEDS: lisinopriL 5 MG TABLET PO SCH (07:17)
[2021-05-03] MEDS: Sennosides/Docusate Sodium TABLET PO SCH ×2 (07:17→20:36)
[2021-05-03] MEDS: Gabapentin 400 MG CAPSULE PO SCH ×3 (07:17→20:37)
[2021-05-03] MEDS: *HR* Acetylcysteine 20% 600 MG/3 ML ORAL SYRINGE PO SCH ×2 (07:17→20:36)
[2021-05-03] MEDS: Famotidine 20 MG TABLET PO SCH ×2 (07:17→20:37)
[2021-05-03] MEDS: Dexmedetomidine HCl 400 MCG/100 ML MLS IVC SCH ×2 (11:10→20:36)
[2021-05-04] MEDS: Ketorolac 15 MG/ML VIAL IVP SCH ×4 (00:44→16:56)
[2021-05-04] MEDS: *HR* OxyCODONE/APAP 10/325 TABLET PO PRN ×2 (00:48→06:45)
[2021-05-04] MEDS: Dexmedetomidine HCl 400 MCG/100 ML MLS IVC SCH ×3 (01:13→16:25)
[2021-05-04 01:46] LABS: Eosinophils # 0.4 K/mcL (0.0-0.6); Hematocrit 31.3 % (37.5-50.1); Hemoglobin 9.9 g/dL (12.9-16.9); Mean Corpuscular HGB Conc 31.6 g/dL (31.6-35.5); Mean Corpuscular Hemoglobin 27.4 pg (28.0-33.3); Mean Corpuscular Volume 86.7 fL (83.0-100.0); Mean Platelet Volume 9.1 fL (9.4-12.4); Platelet Count 741 K/mcL (140-400); Red Blood Count 3.61 M/mcL (4.19-5.50); Red Cell Distribution Width 14.6 % (11.5-14.5); White Blood Count 18.3 K/mcL (4.3-11.1)
[2021-05-04 02:01] LABS: BUN/Creatinine Ratio 21 (6-26); Blood Urea Nitrogen 10 mg/dL (6-20); Carbon Dioxide 26 mEq/L (23-29); Chloride 106 mEq/L (98-107); Glucose 95 mg/dL (70-105); Magnesium 1.9 mg/dL (1.6-2.6); Osmolality,Calculated 285 (280-300); Potassium 3.8 mEq/L (3.5-5.1); Sodium 138 mEq/L (136-145); eGFR For African Americans > 60 (> 60); eGFR For Non-African Americans > 60 (> 60)
[2021-05-04 02:06] LABS: Lymphocytes # 5.1 K/mcL (0.6-4.6); Monocytes # 1.1 K/mcL (0.0-1.3); Platelet Estimate Marked Increase (Normal)
[2021-05-04] MEDS: Vancomycin 1,500 MG/265 ML IV.SOLN IVPB SCH ×3 (02:50→20:14)
[2021-05-04] MEDS: Ipratropium/Albuterol Neb 3 ML IH SCH ×6 (03:46→22:31)
[2021-05-04] MEDS: *HR* HYDROmorphone 2 MG/ML SYRINGE IVP PRN ×4 (03:46→20:32)
[2021-05-04] MEDS: *HR* Heparin 5,000 UNIT/ML VIAL SQ SCH ×3 (05:50→20:21)
[2021-05-04] MEDS: Sennosides/Docusate Sodium TABLET PO SCH ×2 (07:40→20:16)
[2021-05-04] MEDS: Gabapentin 400 MG CAPSULE PO SCH ×3 (07:40→20:16)
[2021-05-04] MEDS: Famotidine 20 MG TABLET PO SCH ×2 (07:40→20:16)
[2021-05-04] MEDS: lisinopriL 5 MG TABLET PO SCH (07:41)
[2021-05-04] MEDS: *HR* Acetylcysteine 20% 600 MG/3 ML ORAL SYRINGE PO SCH (07:42)
[2021-05-04] MEDS ORDERED: *HR* FentaNYL PATCH 50 MCG PATCH TD SCH (07:45)
[2021-05-04] MEDS ORDERED: Benzocaine 20% 12 APPL GEL..GRAM. TP PRN (15:40)
[2021-05-04] MEDS: Cefepime HCl 2,000 MG in 0.9 % Sodium Chloride Mini Bag 100 ML IVPB SCH (16:21)
[2021-05-05] MEDS: Cefepime HCl 2,000 MG in 0.9 % Sodium Chloride Mini Bag 100 ML IVPB SCH ×4 (01:12→23:32)
[2021-05-05] MEDS: *HR* Acetylcysteine 20% 600 MG/3 ML ORAL SYRINGE PO SCH ×3 (01:21→20:27)
[2021-05-05] MEDS: *HR* HYDROmorphone 2 MG/ML SYRINGE IVP PRN ×4 (02:30→19:51)
[2021-05-05] MEDS: Vancomycin 1,500 MG/265 ML IV.SOLN IVPB SCH ×3 (03:23→19:50)
[2021-05-05 03:31] LABS: Eosinophils # 0.4 K/mcL (0.0-0.6); Hematocrit 29.1 % (37.5-50.1); Hemoglobin 9.2 g/dL (12.9-16.9); Mean Corpuscular HGB Conc 31.6 g/dL (31.6-35.5); Mean Corpuscular Hemoglobin 27.7 pg (28.0-33.3); Mean Corpuscular Volume 87.7 fL (83.0-100.0); Mean Platelet Volume 9.1 fL (9.4-12.4); Platelet Count 800 K/mcL (140-400); Red Blood Count 3.32 M/mcL (4.19-5.50); Red Cell Distribution Width 15.4 % (11.5-14.5); White Blood Count 20.5 K/mcL (4.3-11.1)
[2021-05-05 03:44] LABS: BUN/Creatinine Ratio 18 (6-26); Blood Urea Nitrogen 11 mg/dL (6-20); Carbon Dioxide 24 mEq/L (23-29); Chloride 104 mEq/L (98-107); Glucose 85 mg/dL (70-105); Magnesium 1.8 mg/dL (1.6-2.6); Osmolality,Calculated 279 (280-300); Potassium 3.9 mEq/L (3.5-5.1); Sodium 135 mEq/L (136-145); eGFR For African Americans > 60 (> 60); eGFR For Non-African Americans > 60 (> 60)
[2021-05-05 03:54] LABS: Anisocytosis 1+ (Not Present); Lymphocytes # 2.9 K/mcL (0.6-4.6); Monocytes # 0.4 K/mcL (0.0-1.3)
[2021-05-05 03:55] LABS: Platelet Estimate Increased (Normal)
[2021-05-05] MEDS: Dexmedetomidine HCl 400 MCG/100 ML MLS IVC SCH ×2 (04:11→12:10)
[2021-05-05] MEDS: Ipratropium/Albuterol Neb 3 ML IH SCH ×5 (04:37→20:20)
[2021-05-05] MEDS: *HR* Heparin 5,000 UNIT/ML VIAL SQ SCH ×3 (06:11→20:29)
[2021-05-05] MEDS ORDERED: Gadolinium Contrast Agent (WT Based) IV PRN (07:53)
[2021-05-05] MEDS: Famotidine 20 MG TABLET PO SCH ×2 (08:24→20:27)
[2021-05-05] MEDS: Gabapentin 400 MG CAPSULE PO SCH ×3 (08:24→20:27)
[2021-05-05] MEDS: Sennosides/Docusate Sodium TABLET PO SCH ×2 (08:25→20:27)
[2021-05-05] MEDS ORDERED: *HR* HYDROcodone/Acet 10/325 mg TABLET PO PRN (09:51)
[2021-05-05 11:57] LABS: Amphetamine Screen,Urine Negative ng/mL (Cutoff=1000); Barbiturate Screen,Urine Negative ng/mL (Cutoff=200); Benzodiazepines Screen,Urine Negative ng/mL (Cutoff=200); Cannabinoid Screen,Urine Negative ng/mL (Cutoff = 50); Cocaine Screen,Urine Negative ng/mL (Cutoff= 300); Opiate Screen,Urine Positive ng/mL (Cutoff=300); Phencyclidine Screen,Urine Negative ng/mL (Cutoff=25)
[2021-05-05] MEDS: polyethylene glycoL 3350 17 GM POWD.PACK PO SCH (12:08)
[2021-05-05] MEDS ORDERED: GADOBUTROL 30 MMOL/30 ML VIAL IVP ONE (12:52)
[2021-05-05] MEDS ORDERED: *HR* LORazepam 2 MG/ML VIAL IVP ONE (14:51)
[2021-05-06] MEDS: Dexmedetomidine HCl 400 MCG/100 ML MLS IVC SCH (00:33)
[2021-05-06] MEDS: Ipratropium/Albuterol Neb 3 ML IH SCH ×6 (00:39→21:17)
[2021-05-06] MEDS: *HR* HYDROmorphone 2 MG/ML SYRINGE IVP PRN ×3 (02:16→08:48)
[2021-05-06] MEDS: Vancomycin 1,500 MG/265 ML IV.SOLN IVPB SCH ×3 (02:33→20:36)
[2021-05-06] MEDS: *HR* Heparin 5,000 UNIT/ML VIAL SQ SCH ×3 (04:22→20:30)
[2021-05-06] MEDS: *HR* OxyCODONE/APAP 10/325 TABLET PO PRN ×2 (04:24→11:46)
[2021-05-06 05:55] LABS: Basophils # 0.1 K/mcL (0.0-0.2); Basophils % 0.5 %; Eosinophils # 0.3 K/mcL (0.0-0.6); Hematocrit 28.7 % (37.5-50.1); Hemoglobin 9.1 g/dL (12.9-16.9); Immature Granulocytes % 8.7 % (0-4); Lymphocytes # 2.4 K/mcL (0.6-4.6); Lymphocytes % 14.1 %; Mean Corpuscular HGB Conc 31.7 g/dL (31.6-35.5); Mean Corpuscular Hemoglobin 27.7 pg (28.0-33.3); Mean Corpuscular Volume 87.5 fL (83.0-100.0); Mean Platelet Volume 8.7 fL (9.4-12.4); Monocytes # 1.4 K/mcL (0.0-1.3); Monocytes % 8.5 %; Neutrophils # 11.2 K/mcL (1.6-8.9); Platelet Count 743 K/mcL (140-400); Red Blood Count 3.28 M/mcL (4.19-5.50); Red Cell Distribution Width 15.3 % (11.5-14.5); Segmented Neutrophils % 66.2 %; White Blood Count 16.9 K/mcL (4.3-11.1)
[2021-05-06 06:16] LABS: BUN/Creatinine Ratio 17 (6-26); Blood Urea Nitrogen 9 mg/dL (6-20); Calcium 8.1 mg/dL (8.6-10.3); Carbon Dioxide 28 mEq/L (23-29); Chloride 102 mEq/L (98-107); Glucose 113 mg/dL (70-105); Osmolality,Calculated 283 (280-300); Potassium 3.7 mEq/L (3.5-5.1); Sodium 137 mEq/L (136-145); eGFR For African Americans > 60 (> 60); eGFR For Non-African Americans > 60 (> 60)
[2021-05-06] MEDS: Cefepime HCl 2,000 MG in 0.9 % Sodium Chloride Mini Bag 100 ML IVPB SCH ×2 (08:53→16:41)
[2021-05-06] MEDS: polyethylene glycoL 3350 17 GM POWD.PACK PO SCH (08:54)
[2021-05-06] MEDS: *HR* Acetylcysteine 20% 600 MG/3 ML ORAL SYRINGE PO SCH (08:54)
[2021-05-06] MEDS: Sennosides/Docusate Sodium TABLET PO SCH ×2 (08:54→20:30)
[2021-05-06] MEDS: Famotidine 20 MG TABLET PO SCH ×2 (08:54→20:30)
[2021-05-06] MEDS: Gabapentin 400 MG CAPSULE PO SCH ×3 (08:54→20:30)
[2021-05-06] MEDS ORDERED: *HR* HYDROmorphone 2 MG/ML SYRINGE IVP ONE (11:30)
[2021-05-06] MEDS: Morphine Sulfate Oral CONC 10 MG/0.5 ML ORAL.SYG SL PRN ×2 (14:46→20:30)
[2021-05-06] MEDS: *HR* HYDROmorphone (PF) 1 MG/ML SYRINGE IVP PRN ×2 (16:40→23:05)
[2021-05-06] MEDS: Ketorolac 15 MG/ML VIAL IVP SCH (18:10)
[2021-05-06] MEDS: QUEtiapine Fumarate 25 MG TABLET PO SCH (20:30)
[2021-05-07] MEDS: Ipratropium/Albuterol Neb 3 ML IH SCH ×7 (00:20→23:08)
[2021-05-07] MEDS: Cefepime HCl 2,000 MG in 0.9 % Sodium Chloride Mini Bag 100 ML IVPB SCH ×3 (00:51→15:45)
[2021-05-07] MEDS: Ketorolac 15 MG/ML VIAL IVP SCH ×4 (00:51→17:08)
[2021-05-07] MEDS: Morphine Sulfate Oral CONC 10 MG/0.5 ML ORAL.SYG SL PRN ×5 (03:22→20:39)
[2021-05-07] MEDS: Vancomycin 1,500 MG/265 ML IV.SOLN IVPB SCH ×3 (03:22→19:55)
[2021-05-07 03:35] LABS: Hematocrit 28.6 % (37.5-50.1); Mean Corpuscular HGB Conc 31.5 g/dL (31.6-35.5); Mean Corpuscular Hemoglobin 27.5 pg (28.0-33.3); Mean Corpuscular Volume 87.5 fL (83.0-100.0); Mean Platelet Volume 8.6 fL (9.4-12.4); Platelet Count 817 K/mcL (140-400); Red Blood Count 3.27 M/mcL (4.19-5.50); Red Cell Distribution Width 15.6 % (11.5-14.5); White Blood Count 13.5 K/mcL (4.3-11.1)
[2021-05-07 03:59] LABS: BUN/Creatinine Ratio 20 (6-26); Blood Urea Nitrogen 11 mg/dL (6-20); Calcium 8.3 mg/dL (8.6-10.3); Carbon Dioxide 28 mEq/L (23-29); Chloride 105 mEq/L (98-107); Glucose 97 mg/dL (70-105); Osmolality,Calculated 287 (280-300); Potassium 3.7 mEq/L (3.5-5.1); Sodium 139 mEq/L (136-145); eGFR For African Americans > 60 (> 60); eGFR For Non-African Americans > 60 (> 60)
[2021-05-07 04:14] LABS: Anisocytosis 1+ (Not Present); Lymphocytes # 4.9 K/mcL (0.6-4.6); Monocytes # 0.3 K/mcL (0.0-1.3); Neutrophils # 7.8 K/mcL (1.6-8.9); Platelet Estimate Marked Increase (Normal)
[2021-05-07] MEDS: *HR* Heparin 5,000 UNIT/ML VIAL SQ SCH ×2 (04:56→14:15)
[2021-05-07] MEDS: QUEtiapine Fumarate 25 MG TABLET PO SCH ×2 (07:25→19:38)
[2021-05-07] MEDS: Famotidine 20 MG TABLET PO SCH ×2 (07:25→19:39)
[2021-05-07] MEDS: Gabapentin 400 MG CAPSULE PO SCH ×3 (07:25→19:38)
[2021-05-07] MEDS: Sennosides/Docusate Sodium TABLET PO SCH ×2 (07:25→19:39)
[2021-05-07] MEDS: polyethylene glycoL 3350 17 GM POWD.PACK PO SCH ×2 (07:27→07:33)
[2021-05-07] MEDS ORDERED: Lidocaine -MPF 1% 5 ML AMPUL INFILT ONE (13:44)
[2021-05-07] MEDS: Acetaminophen 325 MG TABLET PO PRN (21:06)
[2021-05-08] MEDS: Ketorolac 15 MG/ML VIAL IVP SCH ×5 (00:06→23:09)
[2021-05-08] MEDS: Cefepime HCl 2,000 MG in 0.9 % Sodium Chloride Mini Bag 100 ML IVPB SCH ×4 (00:07→23:09)
[2021-05-08] MEDS: *HR* Heparin 5,000 UNIT/ML VIAL SQ SCH ×4 (00:07→20:16)
[2021-05-08] MEDS: Vancomycin 1,500 MG/265 ML IV.SOLN IVPB SCH ×3 (03:14→20:16)
[2021-05-08] MEDS: Morphine Sulfate Oral CONC 10 MG/0.5 ML ORAL.SYG SL PRN ×4 (03:27→17:24)
[2021-05-08] MEDS: Ipratropium/Albuterol Neb 3 ML IH SCH ×5 (03:47→20:01)
[2021-05-08] MEDS: QUEtiapine Fumarate 25 MG TABLET PO SCH ×2 (07:31→20:16)
[2021-05-08] MEDS: Sennosides/Docusate Sodium TABLET PO SCH ×2 (07:31→20:16)
[2021-05-08] MEDS: Gabapentin 400 MG CAPSULE PO SCH ×3 (07:31→20:16)
[2021-05-08] MEDS: Famotidine 20 MG TABLET PO SCH ×2 (07:31→20:16)
[2021-05-08] MEDS: polyethylene glycoL 3350 17 GM POWD.PACK PO SCH (07:33)
[2021-05-08] MEDS: Acetaminophen 325 MG TABLET PO PRN (14:52)
[2021-05-09] MEDS: Ipratropium/Albuterol Neb 3 ML IH SCH ×6 (00:08→19:28)
[2021-05-09] MEDS: Vancomycin 1,500 MG/265 ML IV.SOLN IVPB SCH ×3 (02:26→18:43)
[2021-05-09] MEDS: Morphine Sulfate Oral CONC 10 MG/0.5 ML ORAL.SYG SL PRN ×3 (02:33→14:55)
[2021-05-09 02:57] LABS: Basophils % 0.4 %; Eosinophils # 0.3 K/mcL (0.0-0.6); Eosinophils % 2.9 %; Hematocrit 29.6 % (37.5-50.1); Immature Granulocytes % 2.3 % (0-4); Lymphocytes % 21.6 %; Mean Corpuscular HGB Conc 30.4 g/dL (31.6-35.5); Mean Corpuscular Hemoglobin 27.1 pg (28.0-33.3); Mean Corpuscular Volume 89.2 fL (83.0-100.0); Mean Platelet Volume 8.1 fL (9.4-12.4); Monocytes # 1.1 K/mcL (0.0-1.3); Monocytes % 12.4 %; Neutrophils # 5.6 K/mcL (1.6-8.9); Platelet Count 707 K/mcL (140-400); Red Blood Count 3.32 M/mcL (4.19-5.50); Red Cell Distribution Width 15.9 % (11.5-14.5); Segmented Neutrophils % 60.4 %; White Blood Count 9.2 K/mcL (4.3-11.1)
[2021-05-09 03:11] LABS: BUN/Creatinine Ratio 23 (6-26); Blood Urea Nitrogen 14 mg/dL (6-20); Calcium 8.5 mg/dL (8.6-10.3); Carbon Dioxide 29 mEq/L (23-29); Chloride 106 mEq/L (98-107); Glucose 94 mg/dL (70-105); Osmolality,Calculated 292 (280-300); Phosphorous 4.7 mg/dL (2.7-4.5); Potassium 4.3 mEq/L (3.5-5.1); Sodium 141 mEq/L (136-145); eGFR For African Americans > 60 (> 60); eGFR For Non-African Americans > 60 (> 60)
[2021-05-09] MEDS: *HR* Heparin 5,000 UNIT/ML VIAL SQ SCH ×3 (05:02→21:22)
[2021-05-09] MEDS: Gabapentin 400 MG CAPSULE PO SCH ×3 (08:33→19:28)
[2021-05-09] MEDS: QUEtiapine Fumarate 25 MG TABLET PO SCH (08:33)
[2021-05-09] MEDS: Famotidine 20 MG TABLET PO SCH ×2 (08:34→19:28)
[2021-05-09] MEDS: Sennosides/Docusate Sodium TABLET PO SCH ×2 (08:34→19:27)
[2021-05-09] MEDS: polyethylene glycoL 3350 17 GM POWD.PACK PO SCH (08:35)
[2021-05-09] MEDS: Cefepime HCl 2,000 MG in 0.9 % Sodium Chloride Mini Bag 100 ML IVPB SCH ×3 (08:35→23:37)
[2021-05-09] MEDS: Ketorolac 15 MG/ML VIAL IVP PRN ×2 (11:23→18:43)
[2021-05-09] MEDS: Acetaminophen 325 MG TABLET PO PRN (16:17)
[2021-05-09] MEDS: tiZANidine 4 MG TABLET PO SCH ×2 (17:47→19:28)
[2021-05-09] MEDS: QUEtiapine Fumarate 100 MG TABLET PO SCH (19:33)
[2021-05-10] MEDS: Ipratropium/Albuterol Neb 3 ML IH SCH ×6 (00:04→20:08)
[2021-05-10] MEDS: Morphine Sulfate Oral CONC 10 MG/0.5 ML ORAL.SYG SL PRN ×4 (00:40→20:48)
[2021-05-10 03:12] LABS: Basophils # 0.1 K/mcL (0.0-0.2); Basophils % 0.4 %; Eosinophils # 0.1 K/mcL (0.0-0.6); Hematocrit 30.4 % (37.5-50.1); Hemoglobin 9.4 g/dL (12.9-16.9); Immature Granulocytes % 1.2 % (0-4); Lymphocytes # 1.8 K/mcL (0.6-4.6); Lymphocytes % 12.8 %; Mean Corpuscular HGB Conc 30.9 g/dL (31.6-35.5); Mean Corpuscular Hemoglobin 26.9 pg (28.0-33.3); Mean Corpuscular Volume 86.9 fL (83.0-100.0); Mean Platelet Volume 8.2 fL (9.4-12.4); Monocytes # 1.2 K/mcL (0.0-1.3); Monocytes % 8.7 %; Neutrophils # 10.6 K/mcL (1.6-8.9); Platelet Count 651 K/mcL (140-400); Red Cell Distribution Width 16.2 % (11.5-14.5); Segmented Neutrophils % 75.9 %
[2021-05-10 03:26] LABS: BUN/Creatinine Ratio 18 (6-26); Blood Urea Nitrogen 17 mg/dL (6-20); Calcium 8.2 mg/dL (8.6-10.3); Carbon Dioxide 27 mEq/L (23-29); Chloride 101 mEq/L (98-107); Glucose 102 mg/dL (70-105); Osmolality,Calculated 280 (280-300); Phosphorous 3.6 mg/dL (2.7-4.5); Potassium 4.1 mEq/L (3.5-5.1); Sodium 134 mEq/L (136-145); eGFR For African Americans > 60 (> 60); eGFR For Non-African Americans > 60 (> 60)
[2021-05-10] MEDS: Vancomycin 1,250 MG/262.5 ML IV.SOLN IVPB SCH ×2 (04:49→12:37)
[2021-05-10] MEDS: Ketorolac 15 MG/ML VIAL IVP PRN ×2 (04:54→12:42)
[2021-05-10] MEDS: Sennosides/Docusate Sodium TABLET PO SCH ×2 (07:38→20:35)
[2021-05-10] MEDS: *HR* Heparin 5,000 UNIT/ML VIAL SQ SCH ×3 (07:38→20:36)
[2021-05-10] MEDS: polyethylene glycoL 3350 17 GM POWD.PACK PO SCH (07:38)
[2021-05-10] MEDS: Cefepime HCl 2,000 MG in 0.9 % Sodium Chloride Mini Bag 100 ML IVPB SCH ×2 (08:38→17:02)
[2021-05-10] MEDS: tiZANidine 4 MG TABLET PO SCH ×3 (08:38→20:36)
[2021-05-10] MEDS: Gabapentin 400 MG CAPSULE PO SCH ×3 (08:38→20:36)
[2021-05-10] MEDS: carvediloL 6.25 MG TABLET PO SCH ×2 (08:39→17:02)
[2021-05-10] MEDS: Famotidine 20 MG TABLET PO SCH ×2 (08:39→20:36)
[2021-05-10] MEDS ORDERED: Gadolinium Contrast Agent (WT Based) IV PRN (13:53)
[2021-05-10] MEDS ORDERED: 0.9 % Sodium Chloride 1,000 ML IVC SCH (14:00)
[2021-05-10] MEDS: QUEtiapine Fumarate 100 MG TABLET PO SCH (20:36)
[2021-05-11] MEDS: Vancomycin 1,250 MG/262.5 ML IV.SOLN IVPB SCH ×2 (00:08→15:45)
[2021-05-11] MEDS: Cefepime HCl 2,000 MG in 0.9 % Sodium Chloride Mini Bag 100 ML IVPB SCH ×3 (00:48→20:09)
[2021-05-11] MEDS: Morphine Sulfate Oral CONC 10 MG/0.5 ML ORAL.SYG SL PRN ×3 (03:31→16:52)
[2021-05-11] MEDS: Acetaminophen 325 MG TABLET PO PRN ×3 (04:04→20:09)
[2021-05-11] MEDS: Ipratropium/Albuterol Neb 3 ML IH SCH ×6 (04:14→22:55)
[2021-05-11] MEDS: *HR* Heparin 5,000 UNIT/ML VIAL SQ SCH ×3 (04:15→20:09)
[2021-05-11] MEDS: Famotidine 20 MG TABLET PO SCH ×2 (07:35→20:09)
[2021-05-11] MEDS: carvediloL 6.25 MG TABLET PO SCH ×2 (07:35→15:45)
[2021-05-11] MEDS: tiZANidine 4 MG TABLET PO SCH ×3 (07:35→20:09)
[2021-05-11] MEDS: Gabapentin 400 MG CAPSULE PO SCH ×3 (07:35→20:09)
[2021-05-11] MEDS: QUEtiapine Fumarate 25 MG TABLET PO SCH (07:35)
[2021-05-11] MEDS: polyethylene glycoL 3350 17 GM POWD.PACK PO SCH (07:36)
[2021-05-11] MEDS: Sennosides/Docusate Sodium TABLET PO SCH ×2 (07:49→20:09)
[2021-05-11 10:58] LABS: Basophils # 0.1 K/mcL (0.0-0.2); Basophils % 0.6 %; Eosinophils # 0.2 K/mcL (0.0-0.6); Eosinophils % 2.1 %; Hematocrit 29.6 % (37.5-50.1); Immature Granulocytes % 1.4 % (0-4); Lymphocytes # 1.5 K/mcL (0.6-4.6); Lymphocytes % 16.9 %; Mean Corpuscular HGB Conc 30.4 g/dL (31.6-35.5); Mean Corpuscular Hemoglobin 27.1 pg (28.0-33.3); Mean Corpuscular Volume 89.2 fL (83.0-100.0); Mean Platelet Volume 8.3 fL (9.4-12.4); Monocytes % 11.8 %; Platelet Count 490 K/mcL (140-400); Red Blood Count 3.32 M/mcL (4.19-5.50); Red Cell Distribution Width 16.2 % (11.5-14.5); Segmented Neutrophils % 67.2 %; White Blood Count 8.9 K/mcL (4.3-11.1)
[2021-05-11 11:17] LABS: BUN/Creatinine Ratio 24 (6-26); Blood Urea Nitrogen 14 mg/dL (6-20); Calcium 8.2 mg/dL (8.6-10.3); Carbon Dioxide 27 mEq/L (23-29); Chloride 104 mEq/L (98-107); Glucose 131 mg/dL (70-105); Magnesium 1.8 mg/dL (1.6-2.6); Osmolality,Calculated 286 (280-300); Phosphorous 2.7 mg/dL (2.7-4.5); Potassium 3.6 mEq/L (3.5-5.1); Sodium 137 mEq/L (136-145); eGFR For African Americans > 60 (> 60); eGFR For Non-African Americans > 60 (> 60)
[2021-05-11 12:02] LABS: C-Reactive Protein 23 mg/L (Less than 10)
[2021-05-11] MEDS ORDERED: *HR* LORazepam 2 MG/ML VIAL IVP STA (12:56)
[2021-05-11] MEDS ORDERED: GADOBUTROL 30 MMOL/30 ML VIAL IVP ONE (15:13)
[2021-05-11] MEDS: QUEtiapine Fumarate 100 MG TABLET PO SCH (20:09)
[2021-05-12] MEDS: Cefepime HCl 2,000 MG in 0.9 % Sodium Chloride Mini Bag 100 ML IVPB SCH ×3 (00:38→16:20)
[2021-05-12] MEDS: Vancomycin 1,250 MG/262.5 ML IV.SOLN IVPB SCH ×3 (00:38→11:45)
[2021-05-12] MEDS: Morphine Sulfate Oral CONC 10 MG/0.5 ML ORAL.SYG SL PRN ×4 (01:50→20:10)
[2021-05-12] MEDS: Ipratropium/Albuterol Neb 3 ML IH SCH ×6 (03:28→23:29)
[2021-05-12] MEDS: *HR* Heparin 5,000 UNIT/ML VIAL SQ SCH ×3 (05:08→20:09)
[2021-05-12] MEDS: Acetaminophen 325 MG TABLET PO PRN ×2 (05:08→20:09)
[2021-05-12 05:32] LABS: Basophils # 0.1 K/mcL (0.0-0.2); Basophils % 0.8 %; Eosinophils # 0.2 K/mcL (0.0-0.6); Eosinophils % 2.6 %; Hematocrit 32.6 % (37.5-50.1); Hemoglobin 10.1 g/dL (12.9-16.9); Immature Granulocytes % 1.2 % (0-4); Lymphocytes # 1.3 K/mcL (0.6-4.6); Lymphocytes % 18.2 %; Mean Corpuscular Hemoglobin 27.3 pg (28.0-33.3); Mean Corpuscular Volume 88.1 fL (83.0-100.0); Mean Platelet Volume 8.3 fL (9.4-12.4); Monocytes # 0.9 K/mcL (0.0-1.3); Monocytes % 12.1 %; Neutrophils # 4.7 K/mcL (1.6-8.9); Platelet Count 499 K/mcL (140-400); Red Cell Distribution Width 16.5 % (11.5-14.5); Segmented Neutrophils % 65.1 %; White Blood Count 7.3 K/mcL (4.3-11.1)
[2021-05-12 05:53] LABS: BUN/Creatinine Ratio 20 (6-26); Blood Urea Nitrogen 11 mg/dL (6-20); Calcium 8.6 mg/dL (8.6-10.3); Carbon Dioxide 30 mEq/L (23-29); Chloride 101 mEq/L (98-107); Glucose 77 mg/dL (70-105); Osmolality,Calculated 278 (280-300); Phosphorous 3.4 mg/dL (2.7-4.5); Potassium 4.5 mEq/L (3.5-5.1); Sodium 135 mEq/L (136-145); eGFR For African Americans > 60 (> 60); eGFR For Non-African Americans > 60 (> 60)
[2021-05-12] MEDS: polyethylene glycoL 3350 17 GM POWD.PACK PO SCH (07:57)
[2021-05-12] MEDS: Vancomycin 1,500 MG/265 ML IV.SOLN IVPB SCH (08:17)
[2021-05-12] MEDS: Sennosides/Docusate Sodium TABLET PO SCH ×2 (08:57→20:09)
[2021-05-12] MEDS: Gabapentin 400 MG CAPSULE PO SCH ×3 (08:57→20:09)
[2021-05-12] MEDS: tiZANidine 4 MG TABLET PO SCH (08:57)
[2021-05-12] MEDS: Famotidine 20 MG TABLET PO SCH ×2 (08:58→20:10)
[2021-05-12] MEDS: carvediloL 6.25 MG TABLET PO SCH ×2 (08:58→16:19)
[2021-05-12] MEDS: QUEtiapine Fumarate 25 MG TABLET PO SCH (08:58)
[2021-05-12 11:54] LABS: Adenovirus Not Detected (Not Detect); Bordetella Pertussis Not Detected (Not Detect); Chlamydophila pneumoniae Not Detected (Not Detect); Coronavirus 229E Not Detected (Not Detect); Coronavirus HKU1 Not Detected (Not Detect); Coronavirus NL63 Not Detected (Not Detect); Coronavirus OC43 Not Detected (Not Detect); Human Metapneumovirus Not Detected (Not Detect); Human Rhinovirus/Enterovirus Not Detected (Not Detect); Influenza A Subtype 2009 H1 Not Detected (Not Detect); Influenza B Not Detected (Not Detect); Mycoplasma pneumoniae Not Detected (Not Detect); Parainfluenza Virus 1 Not Detected (Not Detect); Parainfluenza Virus 2 Not Detected (Not Detect); Parainfluenza Virus 3 Not Detected (Not Detect); Parainfluenza Virus 4 Not Detected (Not Detect); Respiratory Syncytial Virus Not Detected (Not Detect); SARS-CoV-2 Not Detected (Not Detect)
[2021-05-12] MEDS: tiZANidine 4 MG TABLET PO PRN ×2 (13:13→21:13)
[2021-05-12] MEDS: QUEtiapine Fumarate 100 MG TABLET PO SCH (20:09)
[2021-05-13] MEDS: Cefepime HCl 2,000 MG in 0.9 % Sodium Chloride Mini Bag 100 ML IVPB SCH ×2 (00:19→07:35)
[2021-05-13] MEDS: Ipratropium/Albuterol Neb 3 ML IH SCH ×6 (03:18→23:33)
[2021-05-13] MEDS: Morphine Sulfate Oral CONC 10 MG/0.5 ML ORAL.SYG SL PRN ×3 (03:37→16:07)
[2021-05-13] MEDS: *HR* Heparin 5,000 UNIT/ML VIAL SQ SCH ×3 (05:28→20:02)
[2021-05-13 05:49] LABS: Basophils % 0.6 %; Eosinophils # 0.2 K/mcL (0.0-0.6); Eosinophils % 3.5 %; Hematocrit 32.1 % (37.5-50.1); Hemoglobin 10.1 g/dL (12.9-16.9); Immature Granulocytes % 1.4 % (0-4); Lymphocytes # 1.2 K/mcL (0.6-4.6); Lymphocytes % 22.9 %; Mean Corpuscular HGB Conc 31.5 g/dL (31.6-35.5); Mean Corpuscular Hemoglobin 27.9 pg (28.0-33.3); Mean Corpuscular Volume 88.7 fL (83.0-100.0); Mean Platelet Volume 8.1 fL (9.4-12.4); Monocytes # 0.8 K/mcL (0.0-1.3); Monocytes % 15.3 %; Neutrophils # 2.9 K/mcL (1.6-8.9); Platelet Count 380 K/mcL (140-400); Red Blood Count 3.62 M/mcL (4.19-5.50); Red Cell Distribution Width 16.5 % (11.5-14.5); Segmented Neutrophils % 56.3 %; White Blood Count 5.2 K/mcL (4.3-11.1)
[2021-05-13 06:07] LABS: BUN/Creatinine Ratio 16 (6-26); Blood Urea Nitrogen 9 mg/dL (6-20); Calcium 8.6 mg/dL (8.6-10.3); Carbon Dioxide 29 mEq/L (23-29); Chloride 103 mEq/L (98-107); Glucose 79 mg/dL (70-105); Osmolality,Calculated 284 (280-300); Phosphorous 4.1 mg/dL (2.7-4.5); Potassium 4.3 mEq/L (3.5-5.1); Sodium 138 mEq/L (136-145); eGFR For African Americans > 60 (> 60); eGFR For Non-African Americans > 60 (> 60)
[2021-05-13] MEDS: tiZANidine 4 MG TABLET PO PRN ×3 (07:34→21:50)
[2021-05-13] MEDS: QUEtiapine Fumarate 25 MG TABLET PO SCH (07:34)
[2021-05-13] MEDS: Gabapentin 400 MG CAPSULE PO SCH ×3 (07:35→19:59)
[2021-05-13] MEDS: Sennosides/Docusate Sodium TABLET PO SCH ×2 (07:35→19:58)
[2021-05-13] MEDS: carvediloL 6.25 MG TABLET PO SCH ×2 (07:35→16:06)
[2021-05-13] MEDS: Famotidine 20 MG TABLET PO SCH ×2 (07:35→19:58)
[2021-05-13] MEDS: polyethylene glycoL 3350 17 GM POWD.PACK PO SCH (07:35)
[2021-05-13] MEDS: Acetaminophen 325 MG TABLET PO PRN (16:06)
[2021-05-13] MEDS: Ertapenem 1,000 MG in 0.9 % Sodium Chloride Mini Bag 100 ML IVPB SCH (16:07)
[2021-05-13] MEDS: Ibuprofen 400 MG TABLET PO PRN ×2 (17:02→23:46)
[2021-05-13] MEDS: QUEtiapine Fumarate 100 MG TABLET PO SCH (19:58)
[2021-05-13] MEDS: *HR* LORazepam 2 MG/ML VIAL IVP ONE (22:12)
[2021-05-13] MEDS ORDERED: Morphine Sulfate 2 MG/ML SYRINGE IVP ONE (23:21)
[2021-05-13 23:33] LABS: ABG Base Excess 2 mEq/L (-2 to 3); ABG HCO3 25 mEq/L (21-27); ABG Oxygen Saturation 95 % (95-98); ABG PCO2 30 mmHg (35-45); ABG PH 7.52 pH Units (7.32-7.45); ABG PO2 67 mmHg (85-104); ABG TCO2 26 mEq/L (20-26)
[2021-05-14 00:07] LABS: Basophils % 0.5 %; Eosinophils # 0.1 K/mcL (0.0-0.6); Hematocrit 29.9 % (37.5-50.1); Hemoglobin 9.5 g/dL (12.9-16.9); Immature Granulocytes % 2.2 % (0-4); Lymphocytes # 1.3 K/mcL (0.6-4.6); Lymphocytes % 15.2 %; Mean Corpuscular HGB Conc 31.8 g/dL (31.6-35.5); Mean Corpuscular Hemoglobin 27.7 pg (28.0-33.3); Mean Corpuscular Volume 87.2 fL (83.0-100.0); Mean Platelet Volume 8.6 fL (9.4-12.4); Monocytes # 0.7 K/mcL (0.0-1.3); Monocytes % 8.5 %; Neutrophils # 6.3 K/mcL (1.6-8.9); Platelet Count 315 K/mcL (140-400); Red Blood Count 3.43 M/mcL (4.19-5.50); Red Cell Distribution Width 16.5 % (11.5-14.5); Segmented Neutrophils % 72.6 %
[2021-05-14 00:11] LABS: Alanine Aminotransferase 55 Units/L (7-52); Albumin 2.8 g/dL (3.5-5.7); Albumin/Globulin Ratio 0.7 (1.1-2.2); Alkaline Phosphatase 121 Units/L (34-104); Aspartate Amino Transferase 51 Units/L (13-39); BUN/Creatinine Ratio 21 (6-26); Bilirubin,Total 0.3 mg/dL (0.3-1.0); Blood Urea Nitrogen 15 mg/dL (6-20); Calcium 8.4 mg/dL (8.6-10.3); Carbon Dioxide 26 mEq/L (23-29); Chloride 101 mEq/L (98-107); Glucose 92 mg/dL (70-105); Osmolality,Calculated 278 (280-300); Potassium 4.3 mEq/L (3.5-5.1); Sodium 134 mEq/L (136-145); Total Protein 6.8 g/dL (6.4-8.9); Troponin I < 0.03 ng/mL (< 0.04); eGFR For African Americans > 60 (> 60); eGFR For Non-African Americans > 60 (> 60)
[2021-05-14 00:13] LABS: White Blood Count 8.7 K/mcL (4.3-11.1)
[2021-05-14] MEDS ORDERED: *HR* LORazepam 2 MG/ML VIAL IVP ONE ×2 (00:19→21:25)
[2021-05-14 00:25] LABS: Platelet Estimate Normal (Normal); Reactive Lymphocytes Present (Not Present)
[2021-05-14] MEDS ORDERED: Isovue-370 500 ML BOTTLE IVP ONE (02:10)
[2021-05-14] MEDS ORDERED: 0.9 % Sodium Chloride 1,000 ML IVC ONE (02:13)
[2021-05-14] MEDS: Ipratropium/Albuterol Neb 3 ML IH SCH ×5 (03:42→20:03)
[2021-05-14] MEDS: *HR* Heparin 5,000 UNIT/ML VIAL SQ SCH ×3 (05:55→21:53)
[2021-05-14 07:50] LABS: Basophils # 0.1 K/mcL (0.0-0.2); Basophils % 0.6 %; Eosinophils # 0.1 K/mcL (0.0-0.6); Eosinophils % 1.1 %; Hemoglobin 10.2 g/dL (12.9-16.9); Immature Granulocytes % 1.1 % (0-4); Lymphocytes # 1.7 K/mcL (0.6-4.6); Lymphocytes % 19.7 %; Mean Corpuscular HGB Conc 30.9 g/dL (31.6-35.5); Mean Corpuscular Hemoglobin 27.7 pg (28.0-33.3); Mean Corpuscular Volume 89.7 fL (83.0-100.0); Monocytes # 0.6 K/mcL (0.0-1.3); Neutrophils # 6.1 K/mcL (1.6-8.9); Platelet Count 301 K/mcL (140-400); Red Blood Count 3.68 M/mcL (4.19-5.50); Segmented Neutrophils % 70.5 %; White Blood Count 8.7 K/mcL (4.3-11.1)
[2021-05-14 08:14] LABS: BUN/Creatinine Ratio 19 (6-26); Blood Urea Nitrogen 15 mg/dL (6-20); Calcium 8.4 mg/dL (8.6-10.3); Carbon Dioxide 25 mEq/L (23-29); Chloride 102 mEq/L (98-107); Glucose 74 mg/dL (70-105); Osmolality,Calculated 279 (280-300); Potassium 4.3 mEq/L (3.5-5.1); Sodium 135 mEq/L (136-145); eGFR For African Americans > 60 (> 60); eGFR For Non-African Americans > 60 (> 60)
[2021-05-14] MEDS: Ertapenem 1,000 MG in 0.9 % Sodium Chloride Mini Bag 100 ML IVPB SCH (08:15)
[2021-05-14] MEDS: Famotidine 20 MG TABLET PO SCH ×2 (08:16→19:40)
[2021-05-14] MEDS: carvediloL 6.25 MG TABLET PO SCH ×2 (08:16→18:39)
[2021-05-14] MEDS: Gabapentin 400 MG CAPSULE PO SCH ×3 (08:16→19:38)
[2021-05-14] MEDS: QUEtiapine Fumarate 25 MG TABLET PO SCH (08:16)
[2021-05-14] MEDS: Sennosides/Docusate Sodium TABLET PO SCH ×2 (08:16→19:40)
[2021-05-14] MEDS: Morphine Sulfate Oral CONC 10 MG/0.5 ML ORAL.SYG SL PRN ×2 (08:17→15:07)
[2021-05-14] MEDS: polyethylene glycoL 3350 17 GM POWD.PACK PO SCH (08:18)
[2021-05-14] MEDS: tiZANidine 4 MG TABLET PO PRN ×2 (08:31→15:06)
[2021-05-14] MEDS ORDERED: Acetaminophen 325 MG TABLET PO PRN (19:29)
[2021-05-14] MEDS: QUEtiapine Fumarate 100 MG TABLET PO SCH (19:37)
[2021-05-14] MEDS: Ibuprofen 400 MG TABLET PO PRN (19:37)
[2021-05-15] MEDS: Ipratropium/Albuterol Neb 3 ML IH SCH ×4 (00:12→10:59)
[2021-05-15] MEDS: Morphine Sulfate Oral CONC 10 MG/0.5 ML ORAL.SYG SL PRN ×3 (01:55→20:13)
[2021-05-15] MEDS ORDERED: *HR* LORazepam 2 MG/ML VIAL IVP ONE ×4 (02:15→20:42)
[2021-05-15] MEDS: tiZANidine 4 MG TABLET PO PRN ×3 (03:55→20:14)
[2021-05-15] MEDS: *HR* LORazepam 2 MG/ML VIAL IVP ONE (06:43)
[2021-05-15] MEDS: *HR* Heparin 5,000 UNIT/ML VIAL SQ SCH ×3 (06:45→20:15)
[2021-05-15] MEDS: Ibuprofen 400 MG TABLET PO PRN ×2 (06:53→19:58)
[2021-05-15] MEDS: Ertapenem 1,000 MG in 0.9 % Sodium Chloride Mini Bag 100 ML IVPB SCH (07:41)
[2021-05-15] MEDS: QUEtiapine Fumarate 25 MG TABLET PO SCH (07:42)
[2021-05-15] MEDS: Gabapentin 400 MG CAPSULE PO SCH ×3 (07:42→20:14)
[2021-05-15] MEDS: carvediloL 6.25 MG TABLET PO SCH ×2 (07:42→16:28)
[2021-05-15] MEDS: Sennosides/Docusate Sodium TABLET PO SCH ×2 (07:42→20:14)
[2021-05-15] MEDS: Famotidine 20 MG TABLET PO SCH ×2 (07:42→20:15)
[2021-05-15 08:18] LABS: ABG Base Excess 2 mEq/L (-2 to 3); ABG HCO3 26 mEq/L (21-27); ABG Oxygen Saturation 96 % (95-98); ABG PCO2 33 mmHg (35-45); ABG PO2 76 mmHg (85-104); ABG TCO2 27 mEq/L (20-26); Blood Gas FiO2 4.2 (1-15=lpm or21-100=%)
[2021-05-15] MEDS ORDERED: Gadolinium Contrast Agent (WT Based) IV PRN (08:49)
[2021-05-15] MEDS: polyethylene glycoL 3350 17 GM POWD.PACK PO SCH (08:56)
[2021-05-15] MEDS ORDERED: GADOBUTROL 30 MMOL/30 ML VIAL IVP ONE (10:23)
[2021-05-15] MEDS ORDERED: 0.9 % Sodium Chloride 500 ML IVC PRN (13:08)
[2021-05-15 14:59] LABS: Basophils % 0.8 %; Eosinophils # 0.1 K/mcL (0.0-0.6); Eosinophils % 2.6 %; Hematocrit 31.5 % (37.5-50.1); Hemoglobin 9.6 g/dL (12.9-16.9); Immature Granulocytes % 1.3 % (0-4); Lymphocytes # 0.7 K/mcL (0.6-4.6); Lymphocytes % 18.1 %; Mean Corpuscular HGB Conc 30.5 g/dL (31.6-35.5); Mean Corpuscular Volume 88.7 fL (83.0-100.0); Mean Platelet Volume 9.4 fL (9.4-12.4); Monocytes # 0.3 K/mcL (0.0-1.3); Monocytes % 6.5 %; Platelet Count 248 K/mcL (140-400); Red Blood Count 3.55 M/mcL (4.19-5.50); Red Cell Distribution Width 17.3 % (11.5-14.5); Segmented Neutrophils % 70.7 %
[2021-05-15 15:05] LABS: Neutrophils # 2.8 K/mcL (1.6-8.9); White Blood Count 3.9 K/mcL (4.3-11.1)
[2021-05-15 15:17] LABS: BUN/Creatinine Ratio 19 (6-26); Blood Urea Nitrogen 15 mg/dL (6-20); Calcium 8.4 mg/dL (8.6-10.3); Carbon Dioxide 28 mEq/L (23-29); Chloride 101 mEq/L (98-107); Glucose 82 mg/dL (70-105); Osmolality,Calculated 282 (280-300); Potassium 3.9 mEq/L (3.5-5.1); Sodium 136 mEq/L (136-145); eGFR For African Americans > 60 (> 60); eGFR For Non-African Americans > 60 (> 60)
[2021-05-15 15:32] LABS: C-Reactive Protein 69 mg/L (Less than 10)
[2021-05-15] MEDS ORDERED: Ipratropium/Albuterol Neb 3 ML IH PRN (16:00)
[2021-05-15] MEDS ORDERED: Meropenem 1,000 MG in 0.9 % Sodium Chloride Mini Bag 100 ML IVPB SCH (16:00)
[2021-05-15] MEDS: Nicotine 21 MG PATCH.TD24 TD SCH (16:27)
[2021-05-15] MEDS: *HR* LORazepam 2 MG/ML VIAL IVP PRN (16:27)
[2021-05-15 17:41] LABS: QuantiFERON Mitogen minus NIL 7.19 IU/mL
[2021-05-15] MEDS: QUEtiapine Fumarate 100 MG TABLET PO SCH (20:15)
[2021-05-15] MEDS ORDERED: Acetaminophen IV 1,000 MG/100 ML BAG IVPB ONE (22:09)
[2021-05-15] MEDS ORDERED: Ringers Solution, Lactated 1,000 ML ONE (22:48)
[2021-05-15] MEDS ORDERED: Ringers Solution, Lactated 1,000 ML IVC ONE (22:53)
[2021-05-16] MEDS ORDERED: Ringers Solution, Lactated 500 ML IVC ONE (00:18)
[2021-05-16] MEDS: Meropenem 1,000 MG in 0.9 % Sodium Chloride Mini Bag 100 ML IVPB SCH ×3 (00:23→15:38)
[2021-05-16] MEDS: Norepinephrine 4 MG/254 ML IV.SOLN IVC SCH ×3 (02:25→18:29)
[2021-05-16 05:25] LABS: Basophils % 1.1 %; Eosinophils # 0.1 K/mcL (0.0-0.6); Eosinophils % 2.8 %; Hemoglobin 9.5 g/dL (12.9-16.9); Immature Granulocytes % 2.5 % (0-4); Lymphocytes # 0.7 K/mcL (0.6-4.6); Lymphocytes % 25.4 %; Mean Corpuscular HGB Conc 31.7 g/dL (31.6-35.5); Mean Corpuscular Volume 88.5 fL (83.0-100.0); Mean Platelet Volume 9.4 fL (9.4-12.4); Monocytes # 0.3 K/mcL (0.0-1.3); Monocytes % 8.8 %; Neutrophils # 1.7 K/mcL (1.6-8.9); Platelet Count 239 K/mcL (140-400); Red Blood Count 3.39 M/mcL (4.19-5.50); Red Cell Distribution Width 17.3 % (11.5-14.5); Segmented Neutrophils % 59.4 %; White Blood Count 2.8 K/mcL (4.3-11.1)
[2021-05-16] MEDS: *HR* Heparin 5,000 UNIT/ML VIAL SQ SCH ×3 (05:34→21:02)
[2021-05-16 05:42] LABS: BUN/Creatinine Ratio 26 (6-26); Blood Urea Nitrogen 17 mg/dL (6-20); Calcium 8.2 mg/dL (8.6-10.3); Carbon Dioxide 27 mEq/L (23-29); Chloride 105 mEq/L (98-107); Glucose 102 mg/dL (70-105); Magnesium 1.9 mg/dL (1.6-2.6); Osmolality,Calculated 288 (280-300); Potassium 3.6 mEq/L (3.5-5.1); Sodium 138 mEq/L (136-145); eGFR For African Americans > 60 (> 60); eGFR For Non-African Americans > 60 (> 60)
[2021-05-16] MEDS: *HR* LORazepam 2 MG/ML VIAL IVP PRN (07:34)
[2021-05-16] MEDS: Nicotine 21 MG PATCH.TD24 TD SCH (07:42)
[2021-05-16] MEDS: Famotidine 20 MG TABLET PO SCH ×2 (07:43→21:02)
[2021-05-16] MEDS: Gabapentin 400 MG CAPSULE PO SCH ×3 (07:43→21:02)
[2021-05-16] MEDS: polyethylene glycoL 3350 17 GM POWD.PACK PO SCH (07:43)
[2021-05-16] MEDS: QUEtiapine Fumarate 25 MG TABLET PO SCH (07:43)
[2021-05-16] MEDS: carvediloL 6.25 MG TABLET PO SCH ×3 (07:45→16:33)
[2021-05-16] MEDS: tiZANidine 4 MG TABLET PO PRN ×2 (07:52→17:26)
[2021-05-16] MEDS: Ibuprofen 400 MG TABLET PO PRN (08:04)
[2021-05-16] MEDS: Sennosides/Docusate Sodium TABLET PO SCH ×2 (08:23→21:07)
[2021-05-16 10:17] LABS: QuantiFERON NIL 0.37 IU/mL; QuantiFERON-TB Gold In-Tube NEGATIVE (Negative)
[2021-05-16] MEDS: 0.9 % Sodium Chloride 1,000 ML IVC SCH ×2 (10:26→17:26)
[2021-05-16] MEDS: Acetaminophen IV 1,000 MG/100 ML BAG IVPB SCH ×3 (11:17→18:28)
[2021-05-16] MEDS: Morphine Sulfate Oral CONC 10 MG/0.5 ML ORAL.SYG SL PRN (16:03)
[2021-05-16] MEDS: QUEtiapine Fumarate 100 MG TABLET PO SCH (21:02)
[2021-05-17] MEDS: 0.9 % Sodium Chloride 1,000 ML IVC SCH ×3 (00:01→17:21)
[2021-05-17] MEDS: *HR* LORazepam 2 MG/ML VIAL IVP PRN ×2 (00:02→11:06)
[2021-05-17] MEDS: Morphine Sulfate Oral CONC 10 MG/0.5 ML ORAL.SYG SL PRN ×3 (02:07→14:20)
[2021-05-17] MEDS: tiZANidine 4 MG TABLET PO PRN ×2 (03:15→10:59)
[2021-05-17] MEDS ORDERED: *HR* FentaNYL (PF) 100 MCG/2 ML VIAL IVP ONE (03:33)
[2021-05-17] MEDS: Dexmedetomidine HCl 400 MCG/100 ML MLS IVC SCH (04:59)
[2021-05-17] MEDS: *HR* Heparin 5,000 UNIT/ML VIAL SQ SCH ×3 (04:59→20:48)
[2021-05-17] MEDS: Acetaminophen IV 1,000 MG/100 ML BAG IVPB SCH ×5 (05:10→23:42)
[2021-05-17 05:40] LABS: Basophils % 0.7 %; Eosinophils # 0.2 K/mcL (0.0-0.6); Eosinophils % 5.6 %; Hematocrit 28.5 % (37.5-50.1); Hemoglobin 8.9 g/dL (12.9-16.9); Immature Granulocytes % 1.1 % (0-4); Lymphocytes # 0.8 K/mcL (0.6-4.6); Lymphocytes % 31.1 %; Mean Corpuscular HGB Conc 31.2 g/dL (31.6-35.5); Mean Corpuscular Hemoglobin 27.6 pg (28.0-33.3); Mean Corpuscular Volume 88.5 fL (83.0-100.0); Mean Platelet Volume 9.4 fL (9.4-12.4); Monocytes # 0.2 K/mcL (0.0-1.3); Monocytes % 6.7 %; Neutrophils # 1.5 K/mcL (1.6-8.9); Platelet Count 189 K/mcL (140-400); Red Blood Count 3.22 M/mcL (4.19-5.50); Red Cell Distribution Width 17.2 % (11.5-14.5); Segmented Neutrophils % 54.8 %; White Blood Count 2.7 K/mcL (4.3-11.1)
[2021-05-17 06:01] LABS: BUN/Creatinine Ratio 20 (6-26); Blood Urea Nitrogen 12 mg/dL (6-20); Calcium 7.5 mg/dL (8.6-10.3); Carbon Dioxide 24 mEq/L (23-29); Chloride 108 mEq/L (98-107); Glucose 104 mg/dL (70-105); Magnesium 1.4 mg/dL (1.6-2.6); Osmolality,Calculated 286 (280-300); Potassium 3.6 mEq/L (3.5-5.1); Sodium 138 mEq/L (136-145); eGFR For African Americans > 60 (> 60); eGFR For Non-African Americans > 60 (> 60)
[2021-05-17] MEDS: Norepinephrine 4 MG/254 ML IV.SOLN IVC SCH ×2 (06:14→16:30)
[2021-05-17] MEDS: Ibuprofen 400 MG TABLET PO PRN ×2 (06:14→16:18)
[2021-05-17] MEDS ORDERED: Simethicone 80 MG TAB.CHEW PO PRN (06:19)
[2021-05-17] MEDS: Gabapentin 400 MG CAPSULE PO SCH ×3 (08:09→20:48)
[2021-05-17] MEDS: Meropenem 1,000 MG in 0.9 % Sodium Chloride Mini Bag 100 ML IVPB SCH ×4 (08:09→23:23)
[2021-05-17] MEDS: carvediloL 6.25 MG TABLET PO SCH ×2 (08:09→16:17)
[2021-05-17] MEDS: Famotidine 20 MG TABLET PO SCH ×2 (08:09→20:48)
[2021-05-17] MEDS: QUEtiapine Fumarate 25 MG TABLET PO SCH (08:09)
[2021-05-17] MEDS: Nicotine 21 MG PATCH.TD24 TD SCH (08:10)
[2021-05-17] MEDS: Sennosides/Docusate Sodium TABLET PO SCH ×2 (09:08→20:48)
[2021-05-17] MEDS: polyethylene glycoL 3350 17 GM POWD.PACK PO SCH (09:08)
[2021-05-17] MEDS: Calcium Gluconate 1gm/50mL 1 GM/50 ML BAG IVPB SCH ×2 (11:58→13:19)
[2021-05-17] MEDS ORDERED: Furosemide 40 MG/4 ML VIAL IVP ONE ×2 (15:12→17:59)
[2021-05-17] MEDS ORDERED: *HR* LORazepam 2 MG/ML VIAL IVP ONE (15:12)
[2021-05-17] MEDS ORDERED: *HR* LORazepam 2 MG/ML VIAL ONE (15:27)
[2021-05-17] MEDS ORDERED: Furosemide 40 MG/4 ML VIAL ONE (15:28)
[2021-05-17] MEDS ORDERED: *HR* Metoprolol 5 MG/5 ML VIAL IVP ONE (17:48)
[2021-05-17] MEDS: QUEtiapine Fumarate 100 MG TABLET PO SCH (20:47)
[2021-05-18] MEDS ORDERED: Famotidine 20 MG/2 ML VIAL IVP ONE (00:47)
[2021-05-18] MEDS: *HR* LORazepam 2 MG/ML VIAL IVP PRN ×2 (00:50→17:15)
[2021-05-18] MEDS ORDERED: methylPREDNISolone 125 MG/2 ML VIAL IVP ONE (00:51)
[2021-05-18] MEDS: Dexmedetomidine HCl 400 MCG/100 ML MLS IVC SCH (01:02)
[2021-05-18 04:38] LABS: Hematocrit 31.8 % (37.5-50.1); Hemoglobin 10.1 g/dL (12.9-16.9); Mean Corpuscular HGB Conc 31.8 g/dL (31.6-35.5); Mean Corpuscular Hemoglobin 27.2 pg (28.0-33.3); Mean Corpuscular Volume 85.7 fL (83.0-100.0); Mean Platelet Volume 9.4 fL (9.4-12.4); Platelet Count 244 K/mcL (140-400); Red Blood Count 3.71 M/mcL (4.19-5.50); Red Cell Distribution Width 17.3 % (11.5-14.5)
[2021-05-18 04:39] LABS: White Blood Count 4.8 K/mcL (4.3-11.1)
[2021-05-18 04:58] LABS: BUN/Creatinine Ratio 15 (6-26); Blood Urea Nitrogen 10 mg/dL (6-20); Calcium 8.1 mg/dL (8.6-10.3); Carbon Dioxide 28 mEq/L (23-29); Chloride 102 mEq/L (98-107); Glucose 113 mg/dL (70-105); Magnesium 1.7 mg/dL (1.6-2.6); Osmolality,Calculated 282 (280-300); Potassium 3.7 mEq/L (3.5-5.1); Sodium 136 mEq/L (136-145); eGFR For African Americans > 60 (> 60); eGFR For Non-African Americans > 60 (> 60)
[2021-05-18] MEDS: *HR* Heparin 5,000 UNIT/ML VIAL SQ SCH ×3 (05:28→20:04)
[2021-05-18] MEDS: Morphine Sulfate Oral CONC 10 MG/0.5 ML ORAL.SYG SL PRN ×2 (05:29→12:34)
[2021-05-18] MEDS: Acetaminophen IV 1,000 MG/100 ML BAG IVPB SCH ×2 (05:29→12:38)
[2021-05-18] MEDS: tiZANidine 4 MG TABLET PO PRN ×3 (07:53→20:03)
[2021-05-18] MEDS: Gabapentin 400 MG CAPSULE PO SCH ×3 (07:54→20:02)
[2021-05-18] MEDS: QUEtiapine Fumarate 25 MG TABLET PO SCH (07:54)
[2021-05-18] MEDS: Famotidine 20 MG TABLET PO SCH ×2 (07:54→20:03)
[2021-05-18] MEDS: carvediloL 6.25 MG TABLET PO SCH ×2 (07:54→16:09)
[2021-05-18] MEDS: Meropenem 1,000 MG in 0.9 % Sodium Chloride Mini Bag 100 ML IVPB SCH ×2 (07:55→17:15)
[2021-05-18] MEDS: Nicotine 21 MG PATCH.TD24 TD SCH (07:55)
[2021-05-18] MEDS: Sennosides/Docusate Sodium TABLET PO SCH ×2 (09:52→20:03)
[2021-05-18] MEDS: polyethylene glycoL 3350 17 GM POWD.PACK PO SCH (09:52)
[2021-05-18] MEDS ORDERED: Simethicone 80 MG TAB.CHEW PO PRN (15:14)
[2021-05-18] MEDS ORDERED: Ipratropium/Albuterol Neb 3 ML IH PRN (15:14)
[2021-05-18] MEDS ORDERED: Benzocaine 20% 12 APPL GEL..GRAM. TP PRN (15:14)
[2021-05-18] MEDS ORDERED: 0.9 % Sodium Chloride 500 ML IVC PRN (15:14)
[2021-05-18] MEDS ORDERED: Naloxone 0.4 MG/ML INJ IVP PRN (15:14)
[2021-05-18 16:24] LABS: Basophils % 0.4 %; Hematocrit 32.2 % (37.5-50.1); Hemoglobin 9.9 g/dL (12.9-16.9); Immature Granulocytes % 0.9 % (0-4); Immature Platelets 2.1 % (1.1-6.1); Lymphocytes # 0.4 K/mcL (0.6-4.6); Lymphocytes % 17.8 %; Mean Corpuscular HGB Conc 30.7 g/dL (31.6-35.5); Mean Corpuscular Hemoglobin 27.4 pg (28.0-33.3); Mean Corpuscular Volume 89.2 fL (83.0-100.0); Monocytes % 1.7 %; Neutrophils # 1.8 K/mcL (1.6-8.9); Platelet Count 255 K/mcL (140-400); Red Blood Count 3.61 M/mcL (4.19-5.50); Red Cell Distribution Width 17.5 % (11.5-14.5); Segmented Neutrophils % 79.2 %; White Blood Count 2.3 K/mcL (4.3-11.1)
[2021-05-18 16:49] LABS: Platelet Estimate Normal (Normal)
[2021-05-18] MEDS: Doxycycline 100 MG in 0.9 % Sodium Chloride Mini Bag 100 ML IVPB SCH (17:15)
[2021-05-18] MEDS ORDERED: Doxycycline 100 MG in 0.9 % Sodium Chloride Mini Bag 100 ML IVPB SCH (18:00)
[2021-05-18] MEDS: QUEtiapine Fumarate 100 MG TABLET PO SCH (20:03)
[2021-05-19] MEDS: Meropenem 1,000 MG in 0.9 % Sodium Chloride Mini Bag 100 ML IVPB SCH ×3 (02:53→19:05)
[2021-05-19] MEDS: Morphine Sulfate Oral CONC 10 MG/0.5 ML ORAL.SYG SL PRN ×3 (04:33→20:01)
[2021-05-19] MEDS: *HR* LORazepam 2 MG/ML VIAL IVP PRN ×3 (05:04→16:02)
[2021-05-19] MEDS: *HR* Heparin 5,000 UNIT/ML VIAL SQ SCH ×3 (05:04→20:00)
[2021-05-19] MEDS: Doxycycline 100 MG in 0.9 % Sodium Chloride Mini Bag 100 ML IVPB SCH ×2 (05:05→19:59)
[2021-05-19 05:19] LABS: Basophils % 0.5 %; Eosinophils # 0.1 K/mcL (0.0-0.6); Hematocrit 30.5 % (37.5-50.1); Hemoglobin 9.8 g/dL (12.9-16.9); Lymphocytes # 1.1 K/mcL (0.6-4.6); Lymphocytes % 27.6 %; Mean Corpuscular HGB Conc 32.1 g/dL (31.6-35.5); Mean Corpuscular Hemoglobin 28.2 pg (28.0-33.3); Mean Corpuscular Volume 87.6 fL (83.0-100.0); Mean Platelet Volume 9.5 fL (9.4-12.4); Monocytes # 0.3 K/mcL (0.0-1.3); Monocytes % 6.3 %; Neutrophils # 2.5 K/mcL (1.6-8.9); Platelet Count 263 K/mcL (140-400); Red Blood Count 3.48 M/mcL (4.19-5.50); Red Cell Distribution Width 17.6 % (11.5-14.5); Segmented Neutrophils % 62.6 %
[2021-05-19 05:28] LABS: VBG Ionized Calcium 1.15 mmol/L (1.15-1.35)
[2021-05-19 05:44] LABS: Anisocytosis 1+ (Not Present)
[2021-05-19 05:45] LABS: Hypochromasia Present (Not Present); Platelet Estimate Normal (Normal)
[2021-05-19 06:15] LABS: Alanine Aminotransferase 99 Units/L (7-52); Albumin 2.9 g/dL (3.5-5.7); Albumin/Globulin Ratio 0.8 (1.1-2.2); Alkaline Phosphatase 115 Units/L (34-104); Aspartate Amino Transferase 110 Units/L (13-39); BUN/Creatinine Ratio 25 (6-26); Bilirubin,Direct 0.1 mg/dL (0.0-0.2); Bilirubin,Indirect 0.2 mg/dL (0.0-1.0); Bilirubin,Total 0.3 mg/dL (0.3-1.0); Blood Urea Nitrogen 13 mg/dL (6-20); Calcium 8.7 mg/dL (8.6-10.3); Carbon Dioxide 26 mEq/L (23-29); Chloride 103 mEq/L (98-107); Globulin 3.6 g/dL (2.4-3.5); Glucose 104 mg/dL (70-105); Magnesium 1.7 mg/dL (1.6-2.6); Osmolality,Calculated 286 (280-300); Phosphorous 2.3 mg/dL (2.7-4.5); Potassium 3.7 mEq/L (3.5-5.1); Sodium 138 mEq/L (136-145); Total Protein 6.5 g/dL (6.4-8.9); eGFR For African Americans > 60 (> 60); eGFR For Non-African Americans > 60 (> 60)
[2021-05-19] MEDS: Dexmedetomidine HCl 400 MCG/100 ML MLS IVC SCH (08:15)
[2021-05-19] MEDS: carvediloL 6.25 MG TABLET PO SCH ×2 (08:46→17:49)
[2021-05-19] MEDS: Gabapentin 400 MG CAPSULE PO SCH ×3 (08:46→20:00)
[2021-05-19] MEDS: QUEtiapine Fumarate 25 MG TABLET PO SCH (08:46)
[2021-05-19] MEDS: Famotidine 20 MG TABLET PO SCH (08:46)
[2021-05-19] MEDS: polyethylene glycoL 3350 17 GM POWD.PACK PO SCH (08:47)
[2021-05-19] MEDS: Sennosides/Docusate Sodium TABLET PO SCH ×2 (08:47→20:01)
[2021-05-19] MEDS: Nicotine 21 MG PATCH.TD24 TD SCH (08:47)
[2021-05-19] MEDS: tiZANidine 4 MG TABLET PO PRN ×2 (08:54→21:00)
[2021-05-19] MEDS ORDERED: Acetaminophen 325 MG TABLET PO PRN (11:15)
[2021-05-19] MEDS: Acetaminophen 325 MG TABLET PO PRN (11:20)
[2021-05-19] MEDS: MethylPREDNISolone 40 MG/ML VIAL IVP SCH ×2 (13:19→17:49)
[2021-05-19] MEDS ORDERED: Famotidine 20 MG/2 ML VIAL IVP ONE (15:36)
[2021-05-19] MEDS: QUEtiapine Fumarate 100 MG TABLET PO SCH (20:00)
[2021-05-20] MEDS: MethylPREDNISolone 40 MG/ML VIAL IVP SCH ×5 (00:39→23:43)
[2021-05-20] MEDS: *HR* LORazepam 2 MG/ML VIAL IVP PRN ×4 (00:39→18:20)
[2021-05-20] MEDS: Meropenem 1,000 MG in 0.9 % Sodium Chloride Mini Bag 100 ML IVPB SCH ×3 (02:26→17:06)
[2021-05-20 03:19] LABS: Basophils % 0.4 %; Eosinophils % 0.2 %; Hematocrit 31.9 % (37.5-50.1); Hemoglobin 10.2 g/dL (12.9-16.9); Immature Granulocytes % 1.3 % (0-4); Lymphocytes # 0.8 K/mcL (0.6-4.6); Lymphocytes % 16.7 %; Mean Corpuscular Hemoglobin 28.1 pg (28.0-33.3); Mean Corpuscular Volume 87.9 fL (83.0-100.0); Mean Platelet Volume 9.7 fL (9.4-12.4); Monocytes # 0.2 K/mcL (0.0-1.3); Monocytes % 3.3 %; Neutrophils # 3.5 K/mcL (1.6-8.9); Platelet Count 325 K/mcL (140-400); Red Blood Count 3.63 M/mcL (4.19-5.50); Red Cell Distribution Width 17.6 % (11.5-14.5); Segmented Neutrophils % 78.1 %; White Blood Count 4.5 K/mcL (4.3-11.1)
[2021-05-20 03:35] LABS: BUN/Creatinine Ratio 23 (6-26); Blood Urea Nitrogen 13 mg/dL (6-20); Carbon Dioxide 28 mEq/L (23-29); Chloride 104 mEq/L (98-107); Glucose 114 mg/dL (70-105); Osmolality,Calculated 287 (280-300); Potassium 3.9 mEq/L (3.5-5.1); Sodium 138 mEq/L (136-145); eGFR For African Americans > 60 (> 60); eGFR For Non-African Americans > 60 (> 60)
[2021-05-20] MEDS: Morphine Sulfate Oral CONC 10 MG/0.5 ML ORAL.SYG SL PRN ×3 (03:50→17:05)
[2021-05-20 03:51] LABS: Anisocytosis 1+ (Not Present); Hypochromasia Present (Not Present); Platelet Estimate Normal (Normal)
[2021-05-20 03:52] LABS: Reactive Lymphocytes Present (Not Present)
[2021-05-20] MEDS: *HR* Heparin 5,000 UNIT/ML VIAL SQ SCH ×3 (06:26→21:04)
[2021-05-20] MEDS: Famotidine 20 MG/2 ML VIAL IVP SCH ×2 (06:27→17:05)
[2021-05-20] MEDS: Doxycycline 100 MG in 0.9 % Sodium Chloride Mini Bag 100 ML IVPB SCH ×2 (06:28→17:06)
[2021-05-20] MEDS: QUEtiapine Fumarate 25 MG TABLET PO SCH (07:24)
[2021-05-20] MEDS: Gabapentin 400 MG CAPSULE PO SCH ×3 (07:24→21:04)
[2021-05-20] MEDS: Sennosides/Docusate Sodium TABLET PO SCH ×2 (07:25→21:04)
[2021-05-20] MEDS: carvediloL 6.25 MG TABLET PO SCH ×2 (07:25→17:05)
[2021-05-20] MEDS: polyethylene glycoL 3350 17 GM POWD.PACK PO SCH (07:26)
[2021-05-20] MEDS: Nicotine 21 MG PATCH.TD24 TD SCH (07:27)
[2021-05-20] MEDS: tiZANidine 4 MG TABLET PO PRN ×2 (07:46→15:24)
[2021-05-20] MEDS: Dexmedetomidine HCl 400 MCG/100 ML MLS IVC SCH ×2 (10:32→18:24)
[2021-05-20] MEDS: Ondansetron 4 MG/2 ML VIAL IVP PRN (12:14)
[2021-05-20] MEDS: QUEtiapine Fumarate 100 MG TABLET PO SCH (21:04)
[2021-05-21] MEDS: Meropenem 1,000 MG in 0.9 % Sodium Chloride Mini Bag 100 ML IVPB SCH ×3 (02:50→18:04)
[2021-05-21] MEDS: *HR* LORazepam 2 MG/ML VIAL IVP PRN ×4 (02:54→21:45)
[2021-05-21] MEDS: Morphine Sulfate Oral CONC 10 MG/0.5 ML ORAL.SYG SL PRN ×3 (02:55→20:41)
[2021-05-21] MEDS: MethylPREDNISolone 40 MG/ML VIAL IVP SCH ×3 (05:36→17:11)
[2021-05-21] MEDS: Famotidine 20 MG/2 ML VIAL IVP SCH ×2 (05:36→17:11)
[2021-05-21] MEDS: *HR* Heparin 5,000 UNIT/ML VIAL SQ SCH ×3 (05:37→20:41)
[2021-05-21] MEDS: Doxycycline 100 MG in 0.9 % Sodium Chloride Mini Bag 100 ML IVPB SCH ×2 (05:37→17:10)
[2021-05-21 06:03] LABS: Basophils % 0.4 %; Eosinophils % 0.1 %; Hematocrit 33.1 % (37.5-50.1); Hemoglobin 10.3 g/dL (12.9-16.9); Lymphocytes # 1.6 K/mcL (0.6-4.6); Lymphocytes % 19.2 %; Mean Corpuscular HGB Conc 31.1 g/dL (31.6-35.5); Mean Corpuscular Hemoglobin 27.4 pg (28.0-33.3); Mean Platelet Volume 9.5 fL (9.4-12.4); Monocytes # 0.7 K/mcL (0.0-1.3); Monocytes % 8.3 %; Neutrophils # 5.8 K/mcL (1.6-8.9); Platelet Count 460 K/mcL (140-400); Red Blood Count 3.76 M/mcL (4.19-5.50); Red Cell Distribution Width 17.6 % (11.5-14.5)
[2021-05-21 06:04] LABS: White Blood Count 8.3 K/mcL (4.3-11.1)
[2021-05-21 06:29] LABS: Anisocytosis 1+ (Not Present); Platelet Estimate Normal (Normal); Reactive Lymphocytes Present (Not Present)
[2021-05-21 06:58] LABS: BUN/Creatinine Ratio 27 (6-26); Blood Urea Nitrogen 16 mg/dL (6-20); Calcium 9.4 mg/dL (8.6-10.3); Carbon Dioxide 28 mEq/L (23-29); Chloride 103 mEq/L (98-107); Glucose 116 mg/dL (70-105); Osmolality,Calculated 290 (280-300); Sodium 139 mEq/L (136-145); eGFR For African Americans > 60 (> 60); eGFR For Non-African Americans > 60 (> 60)
[2021-05-21] MEDS: Gabapentin 400 MG CAPSULE PO SCH ×3 (09:17→20:40)
[2021-05-21] MEDS: Sennosides/Docusate Sodium TABLET PO SCH ×2 (09:17→20:40)
[2021-05-21] MEDS: QUEtiapine Fumarate 25 MG TABLET PO SCH (09:18)
[2021-05-21] MEDS: carvediloL 6.25 MG TABLET PO SCH ×2 (09:18→17:12)
[2021-05-21] MEDS: Nicotine 21 MG PATCH.TD24 TD SCH (09:23)
[2021-05-21] MEDS: polyethylene glycoL 3350 17 GM POWD.PACK PO SCH (09:29)
[2021-05-21] MEDS: tiZANidine 4 MG TABLET PO PRN ×2 (09:51→18:03)
[2021-05-21 13:25] LABS: Alanine Aminotransferase 68 Units/L (7-52); Albumin/Globulin Ratio 0.8 (1.1-2.2); Alkaline Phosphatase 118 Units/L (34-104); Aspartate Amino Transferase 24 Units/L (13-39); Bilirubin,Direct 0.1 mg/dL (0.0-0.2); Bilirubin,Indirect 0.2 mg/dL (0.0-1.0); Bilirubin,Total 0.3 mg/dL (0.3-1.0); Globulin 3.9 g/dL (2.4-3.5); Total Protein 6.9 g/dL (6.4-8.9)
[2021-05-21] MEDS: Dexmedetomidine HCl 400 MCG/100 ML MLS IVC SCH (14:24)
[2021-05-21] MEDS: QUEtiapine Fumarate 100 MG TABLET PO SCH (20:41)
[2021-05-22] MEDS: MethylPREDNISolone 40 MG/ML VIAL IVP SCH ×4 (00:13→17:34)
[2021-05-22] MEDS: Meropenem 1,000 MG in 0.9 % Sodium Chloride Mini Bag 100 ML IVPB SCH ×3 (02:26→21:24)
[2021-05-22] MEDS: Doxycycline 100 MG in 0.9 % Sodium Chloride Mini Bag 100 ML IVPB SCH ×2 (06:59→17:32)
[2021-05-22] MEDS: *HR* Heparin 5,000 UNIT/ML VIAL SQ SCH ×3 (07:01→21:22)
[2021-05-22] MEDS: Famotidine 20 MG/2 ML VIAL IVP SCH ×2 (07:02→17:33)
[2021-05-22 07:26] LABS: Hematocrit 32.4 % (37.5-50.1); Hemoglobin 10.4 g/dL (12.9-16.9); Mean Corpuscular HGB Conc 32.1 g/dL (31.6-35.5); Mean Corpuscular Hemoglobin 28.3 pg (28.0-33.3); Mean Platelet Volume 9.4 fL (9.4-12.4); Nucleated Red Blood Cells 0.1 /100 WBC (0); Platelet Count 517 K/mcL (140-400); Red Blood Count 3.68 M/mcL (4.19-5.50)
[2021-05-22 07:38] LABS: BUN/Creatinine Ratio 31 (6-26); Blood Urea Nitrogen 17 mg/dL (6-20); Calcium 9.2 mg/dL (8.6-10.3); Carbon Dioxide 28 mEq/L (23-29); Chloride 103 mEq/L (98-107); Glucose 118 mg/dL (70-105); Osmolality,Calculated 291 (280-300); Potassium 3.8 mEq/L (3.5-5.1); Sodium 139 mEq/L (136-145); eGFR For African Americans > 60 (> 60); eGFR For Non-African Americans > 60 (> 60)
[2021-05-22 07:56] LABS: White Blood Count 13.5 K/mcL (4.3-11.1)
[2021-05-22] MEDS: carvediloL 6.25 MG TABLET PO SCH ×2 (08:14→17:32)
[2021-05-22] MEDS: QUEtiapine Fumarate 25 MG TABLET PO SCH (08:14)
[2021-05-22] MEDS: Gabapentin 400 MG CAPSULE PO SCH ×3 (08:15→21:21)
[2021-05-22] MEDS: Nicotine 21 MG PATCH.TD24 TD SCH (08:15)
[2021-05-22] MEDS: Sennosides/Docusate Sodium TABLET PO SCH ×2 (08:15→21:21)
[2021-05-22] MEDS: *HR* LORazepam 2 MG/ML VIAL IVP PRN ×3 (08:16→21:22)
[2021-05-22] MEDS: tiZANidine 4 MG TABLET PO PRN ×3 (08:16→21:21)
[2021-05-22] MEDS: polyethylene glycoL 3350 17 GM POWD.PACK PO SCH (08:26)
[2021-05-22] MEDS: Morphine Sulfate Oral CONC 10 MG/0.5 ML ORAL.SYG SL PRN ×3 (08:29→21:24)
[2021-05-22 09:05] LABS: Lymphocytes # 2.7 K/mcL (0.6-4.6); Monocytes # 1.4 K/mcL (0.0-1.3); Neutrophils # 9.5 K/mcL (1.6-8.9); Platelet Estimate Increased (Normal)
[2021-05-22 09:06] LABS: Reactive Lymphocytes Present (Not Present)
[2021-05-22] MEDS: Dexmedetomidine HCl 400 MCG/100 ML MLS IVC SCH (14:43)
[2021-05-22] MEDS: QUEtiapine Fumarate 100 MG TABLET PO SCH (21:21)
[2021-05-23] MEDS: MethylPREDNISolone 40 MG/ML VIAL IVP SCH ×4 (03:35→17:22)
[2021-05-23] MEDS: Meropenem 1,000 MG in 0.9 % Sodium Chloride Mini Bag 100 ML IVPB SCH ×3 (03:35→17:21)
[2021-05-23] MEDS: Morphine Sulfate Oral CONC 10 MG/0.5 ML ORAL.SYG SL PRN ×3 (06:29→18:32)
[2021-05-23] MEDS: *HR* Heparin 5,000 UNIT/ML VIAL SQ SCH ×3 (06:30→20:39)
[2021-05-23] MEDS: carvediloL 6.25 MG TABLET PO SCH ×2 (06:30→17:22)
[2021-05-23] MEDS: Famotidine 20 MG/2 ML VIAL IVP SCH (06:30)
[2021-05-23] MEDS: *HR* LORazepam 2 MG/ML VIAL IVP PRN ×3 (06:31→18:31)
[2021-05-23] MEDS: Nicotine 21 MG PATCH.TD24 TD SCH (08:29)
[2021-05-23] MEDS: Gabapentin 400 MG CAPSULE PO SCH ×3 (08:29→20:38)
[2021-05-23] MEDS: Sennosides/Docusate Sodium TABLET PO SCH ×2 (08:29→20:38)
[2021-05-23] MEDS: QUEtiapine Fumarate 25 MG TABLET PO SCH (08:29)
[2021-05-23] MEDS: tiZANidine 4 MG TABLET PO PRN ×2 (08:41→17:22)
[2021-05-23] MEDS: Doxycycline 100 MG in 0.9 % Sodium Chloride Mini Bag 100 ML IVPB SCH ×2 (09:14→17:28)
[2021-05-23] MEDS: polyethylene glycoL 3350 17 GM POWD.PACK PO SCH (09:46)
[2021-05-23] MEDS: Dexmedetomidine HCl 400 MCG/100 ML MLS IVC SCH (17:09)
[2021-05-23] MEDS: Famotidine 20 MG TABLET PO SCH (17:22)
[2021-05-23 19:28] LABS: Basophils # 0.1 K/mcL (0.0-0.2); Basophils % 0.4 %; Eosinophils % 0.1 %; Hematocrit 35.3 % (37.5-50.1); Hemoglobin 10.8 g/dL (12.9-16.9); Immature Granulocytes % 5.2 % (0-4); Lymphocytes # 2.7 K/mcL (0.6-4.6); Lymphocytes % 17.2 %; Mean Corpuscular HGB Conc 30.6 g/dL (31.6-35.5); Mean Corpuscular Hemoglobin 27.6 pg (28.0-33.3); Mean Corpuscular Volume 90.1 fL (83.0-100.0); Mean Platelet Volume 9.2 fL (9.4-12.4); Monocytes # 1.4 K/mcL (0.0-1.3); Monocytes % 8.9 %; Neutrophils # 10.7 K/mcL (1.6-8.9); Platelet Count 556 K/mcL (140-400); Red Blood Count 3.92 M/mcL (4.19-5.50); Red Cell Distribution Width 18.7 % (11.5-14.5); Segmented Neutrophils % 68.2 %; White Blood Count 15.7 K/mcL (4.3-11.1)
[2021-05-23 19:45] LABS: Anisocytosis 1+ (Not Present); Platelet Estimate Increased (Normal)
[2021-05-23 19:47] LABS: BUN/Creatinine Ratio 30 (6-26); Blood Urea Nitrogen 18 mg/dL (6-20); Calcium 8.8 mg/dL (8.6-10.3); Carbon Dioxide 24 mEq/L (23-29); Chloride 102 mEq/L (98-107); Glucose 156 mg/dL (70-105); Osmolality,Calculated 287 (280-300); Potassium 3.7 mEq/L (3.5-5.1); Sodium 136 mEq/L (136-145); eGFR For African Americans > 60 (> 60); eGFR For Non-African Americans > 60 (> 60)
[2021-05-23] MEDS: QUEtiapine Fumarate 100 MG TABLET PO SCH (20:39)
[2021-05-24] MEDS: MethylPREDNISolone 40 MG/ML VIAL IVP SCH ×4 (00:28→16:08)
[2021-05-24] MEDS: *HR* LORazepam 2 MG/ML VIAL IVP PRN ×4 (00:32→18:52)
[2021-05-24] MEDS: Meropenem 1,000 MG in 0.9 % Sodium Chloride Mini Bag 100 ML IVPB SCH ×3 (02:16→16:20)
[2021-05-24 04:15] LABS: Basophils # 0.1 K/mcL (0.0-0.2); Basophils % 0.5 %; Eosinophils % 0.1 %; Hematocrit 34.7 % (37.5-50.1); Hemoglobin 10.8 g/dL (12.9-16.9); Immature Granulocytes % 5.3 % (0-4); Lymphocytes # 2.4 K/mcL (0.6-4.6); Lymphocytes % 15.6 %; Mean Corpuscular HGB Conc 31.1 g/dL (31.6-35.5); Mean Corpuscular Hemoglobin 28.1 pg (28.0-33.3); Mean Corpuscular Volume 90.4 fL (83.0-100.0); Mean Platelet Volume 9.3 fL (9.4-12.4); Monocytes # 1.2 K/mcL (0.0-1.3); Neutrophils # 10.7 K/mcL (1.6-8.9); Nucleated Red Blood Cells 0.2 /100 WBC (0); Platelet Count 543 K/mcL (140-400); Red Blood Count 3.84 M/mcL (4.19-5.50); Segmented Neutrophils % 70.5 %; White Blood Count 15.2 K/mcL (4.3-11.1)
[2021-05-24 04:17] LABS: Platelet Estimate Increased (Normal)
[2021-05-24 04:25] LABS: BUN/Creatinine Ratio 38 (6-26); Blood Urea Nitrogen 20 mg/dL (6-20); Calcium 8.6 mg/dL (8.6-10.3); Carbon Dioxide 30 mEq/L (23-29); Chloride 104 mEq/L (98-107); Glucose 134 mg/dL (70-105); Osmolality,Calculated 291 (280-300); Potassium 4.1 mEq/L (3.5-5.1); Sodium 138 mEq/L (136-145); eGFR For African Americans > 60 (> 60); eGFR For Non-African Americans > 60 (> 60)
[2021-05-24] MEDS: Morphine Sulfate Oral CONC 10 MG/0.5 ML ORAL.SYG SL PRN ×2 (05:31→12:42)
[2021-05-24] MEDS: tiZANidine 4 MG TABLET PO PRN ×2 (05:38→21:20)
[2021-05-24] MEDS: Doxycycline 100 MG in 0.9 % Sodium Chloride Mini Bag 100 ML IVPB SCH ×2 (05:39→16:21)
[2021-05-24] MEDS: *HR* Heparin 5,000 UNIT/ML VIAL SQ SCH ×3 (05:40→21:17)
[2021-05-24] MEDS: Famotidine 20 MG TABLET PO SCH ×2 (07:05→16:07)
[2021-05-24] MEDS: polyethylene glycoL 3350 17 GM POWD.PACK PO SCH (08:44)
[2021-05-24] MEDS: Nicotine 21 MG PATCH.TD24 TD SCH (08:44)
[2021-05-24] MEDS: Gabapentin 400 MG CAPSULE PO SCH ×3 (08:46→21:17)
[2021-05-24] MEDS: QUEtiapine Fumarate 25 MG TABLET PO SCH (08:46)
[2021-05-24] MEDS: carvediloL 6.25 MG TABLET PO SCH ×2 (08:46→16:06)
[2021-05-24] MEDS: Sennosides/Docusate Sodium TABLET PO SCH ×2 (08:46→21:17)
[2021-05-24] MEDS: QUEtiapine Fumarate 100 MG TABLET PO SCH (21:17)
[2021-05-25] MEDS: Meropenem 1,000 MG in 0.9 % Sodium Chloride Mini Bag 100 ML IVPB SCH ×3 (00:48→17:14)
[2021-05-25] MEDS: MethylPREDNISolone 40 MG/ML VIAL IVP SCH ×5 (00:48→23:31)
[2021-05-25] MEDS: Doxycycline 100 MG in 0.9 % Sodium Chloride Mini Bag 100 ML IVPB SCH ×2 (05:02→17:46)
[2021-05-25] MEDS: *HR* Heparin 5,000 UNIT/ML VIAL SQ SCH ×3 (05:03→20:09)
[2021-05-25] MEDS: Famotidine 20 MG TABLET PO SCH ×2 (05:03→17:13)
[2021-05-25] MEDS: *HR* LORazepam 2 MG/ML VIAL IVP PRN ×3 (09:44→23:31)
[2021-05-25] MEDS: Sennosides/Docusate Sodium TABLET PO SCH ×2 (09:44→20:09)
[2021-05-25] MEDS: QUEtiapine Fumarate 25 MG TABLET PO SCH (09:44)
[2021-05-25] MEDS: Gabapentin 400 MG CAPSULE PO SCH ×3 (09:44→20:09)
[2021-05-25] MEDS: carvediloL 6.25 MG TABLET PO SCH ×2 (09:44→17:13)
[2021-05-25] MEDS: Nicotine 21 MG PATCH.TD24 TD SCH (09:45)
[2021-05-25] MEDS: polyethylene glycoL 3350 17 GM POWD.PACK PO SCH (09:47)
[2021-05-25] MEDS: Morphine Sulfate Oral CONC 10 MG/0.5 ML ORAL.SYG SL PRN ×2 (09:54→17:14)
[2021-05-25] MEDS: tiZANidine 4 MG TABLET PO PRN ×2 (11:42→20:08)
[2021-05-25] MEDS: Acetaminophen 325 MG TABLET PO PRN (14:46)
[2021-05-25] MEDS: Dexmedetomidine HCl 400 MCG/100 ML MLS IVC SCH (15:31)
[2021-05-25] MEDS: QUEtiapine Fumarate 100 MG TABLET PO SCH (20:09)
[2021-05-26] MEDS: Meropenem 1,000 MG in 0.9 % Sodium Chloride Mini Bag 100 ML IVPB SCH ×3 (01:31→18:42)
[2021-05-26] MEDS: *HR* LORazepam 2 MG/ML VIAL IVP PRN ×3 (05:46→18:48)
[2021-05-26] MEDS: Doxycycline 100 MG in 0.9 % Sodium Chloride Mini Bag 100 ML IVPB SCH ×2 (05:47→18:39)
[2021-05-26] MEDS: MethylPREDNISolone 40 MG/ML VIAL IVP SCH ×4 (05:47→23:17)
[2021-05-26] MEDS: Famotidine 20 MG TABLET PO SCH ×2 (05:47→18:35)
[2021-05-26] MEDS: *HR* Heparin 5,000 UNIT/ML VIAL SQ SCH ×3 (05:55→23:17)
[2021-05-26 08:17] LABS: Basophils # 0.1 K/mcL (0.0-0.2); Basophils % 0.4 %; Eosinophils % 0.1 %; Hematocrit 37.7 % (37.5-50.1); Hemoglobin 11.8 g/dL (12.9-16.9); Immature Granulocytes % 4.1 % (0-4); Lymphocytes # 1.3 K/mcL (0.6-4.6); Lymphocytes % 11.7 %; Mean Corpuscular HGB Conc 31.3 g/dL (31.6-35.5); Mean Corpuscular Hemoglobin 27.9 pg (28.0-33.3); Mean Corpuscular Volume 89.1 fL (83.0-100.0); Mean Platelet Volume 9.3 fL (9.4-12.4); Monocytes # 1.1 K/mcL (0.0-1.3); Monocytes % 9.3 %; Neutrophils # 8.5 K/mcL (1.6-8.9); Nucleated Red Blood Cells 0.2 /100 WBC (0); Platelet Count 504 K/mcL (140-400); Red Blood Count 4.23 M/mcL (4.19-5.50); Segmented Neutrophils % 74.4 %; White Blood Count 11.5 K/mcL (4.3-11.1)
[2021-05-26] MEDS: Nicotine 21 MG PATCH.TD24 TD SCH (08:17)
[2021-05-26] MEDS: carvediloL 6.25 MG TABLET PO SCH ×2 (08:22→15:28)
[2021-05-26] MEDS: QUEtiapine Fumarate 25 MG TABLET PO SCH (08:22)
[2021-05-26] MEDS: polyethylene glycoL 3350 17 GM POWD.PACK PO SCH (08:23)
[2021-05-26] MEDS: Gabapentin 400 MG CAPSULE PO SCH ×3 (08:23→20:23)
[2021-05-26] MEDS: Sennosides/Docusate Sodium TABLET PO SCH ×2 (08:23→20:23)
[2021-05-26] MEDS: tiZANidine 4 MG TABLET PO PRN ×3 (08:31→20:23)
[2021-05-26 08:42] LABS: BUN/Creatinine Ratio 38 (6-26); Blood Urea Nitrogen 23 mg/dL (6-20); Calcium 9.1 mg/dL (8.6-10.3); Carbon Dioxide 29 mEq/L (23-29); Chloride 101 mEq/L (98-107); Glucose 107 mg/dL (70-105); Osmolality,Calculated 286 (280-300); Potassium 4.4 mEq/L (3.5-5.1); Sodium 136 mEq/L (136-145); eGFR For African Americans > 60 (> 60); eGFR For Non-African Americans > 60 (> 60)
[2021-05-26] MEDS: Dexmedetomidine HCl 400 MCG/100 ML MLS IVC SCH (15:56)
[2021-05-26] MEDS: QUEtiapine Fumarate 100 MG TABLET PO SCH (20:23)
[2021-05-27] MEDS: Meropenem 1,000 MG in 0.9 % Sodium Chloride Mini Bag 100 ML IVPB SCH ×3 (01:12→17:24)
[2021-05-27] MEDS: *HR* LORazepam 2 MG/ML VIAL IVP PRN ×6 (01:12→20:39)
[2021-05-27] MEDS: MethylPREDNISolone 40 MG/ML VIAL IVP SCH ×3 (05:10→17:24)
[2021-05-27] MEDS: *HR* Heparin 5,000 UNIT/ML VIAL SQ SCH ×3 (05:10→23:37)
[2021-05-27] MEDS: Doxycycline 100 MG in 0.9 % Sodium Chloride Mini Bag 100 ML IVPB SCH ×2 (05:10→19:18)
[2021-05-27] MEDS: Famotidine 20 MG TABLET PO SCH ×2 (05:21→17:24)
[2021-05-27 07:56] LABS: Basophils % 0.2 %; Hematocrit 39.4 % (37.5-50.1); Hemoglobin 12.3 g/dL (12.9-16.9); Immature Granulocytes % 2.8 % (0-4); Lymphocytes % 5.2 %; Mean Corpuscular HGB Conc 31.2 g/dL (31.6-35.5); Mean Corpuscular Hemoglobin 27.9 pg (28.0-33.3); Mean Corpuscular Volume 89.3 fL (83.0-100.0); Mean Platelet Volume 8.8 fL (9.4-12.4); Monocytes # 1.3 K/mcL (0.0-1.3); Monocytes % 6.6 %; Neutrophils # 16.2 K/mcL (1.6-8.9); Platelet Count 436 K/mcL (140-400); Red Blood Count 4.41 M/mcL (4.19-5.50); Red Cell Distribution Width 19.3 % (11.5-14.5); Segmented Neutrophils % 85.2 %
[2021-05-27 08:01] LABS: BUN/Creatinine Ratio 35 (6-26); Blood Urea Nitrogen 24 mg/dL (6-20); Calcium 8.9 mg/dL (8.6-10.3); Carbon Dioxide 25 mEq/L (23-29); Chloride 103 mEq/L (98-107); Glucose 157 mg/dL (70-105); Osmolality,Calculated 291 (280-300); Potassium 3.8 mEq/L (3.5-5.1); Sodium 137 mEq/L (136-145); eGFR For African Americans > 60 (> 60); eGFR For Non-African Americans > 60 (> 60)
[2021-05-27] MEDS: Gabapentin 400 MG CAPSULE PO SCH ×3 (08:07→19:42)
[2021-05-27] MEDS: carvediloL 6.25 MG TABLET PO SCH ×2 (08:08→17:34)
[2021-05-27] MEDS: Sennosides/Docusate Sodium TABLET PO SCH ×2 (08:10→19:42)
[2021-05-27] MEDS: polyethylene glycoL 3350 17 GM POWD.PACK PO SCH (08:11)
[2021-05-27] MEDS: QUEtiapine Fumarate 25 MG TABLET PO SCH (08:11)
[2021-05-27] MEDS: tiZANidine 4 MG TABLET PO PRN ×3 (08:12→22:04)
[2021-05-27] MEDS ORDERED: *HR* LORazepam 2 MG/ML VIAL IVP ONE (08:17)
[2021-05-27] MEDS: Nicotine 21 MG PATCH.TD24 TD SCH (08:34)
[2021-05-27] MEDS: Ibuprofen 400 MG TABLET PO PRN ×2 (11:59→22:32)
[2021-05-27] MEDS: Dexmedetomidine HCl 400 MCG/100 ML MLS IVC SCH (15:42)
[2021-05-27] MEDS: QUEtiapine Fumarate 100 MG TABLET PO SCH (19:42)
[2021-05-28] MEDS: MethylPREDNISolone 40 MG/ML VIAL IVP SCH ×4 (00:49→17:57)
[2021-05-28] MEDS: *HR* LORazepam 2 MG/ML VIAL IVP PRN ×6 (00:51→20:16)
[2021-05-28] MEDS: Meropenem 1,000 MG in 0.9 % Sodium Chloride Mini Bag 100 ML IVPB SCH ×3 (01:14→16:26)
[2021-05-28] MEDS: Doxycycline 100 MG in 0.9 % Sodium Chloride Mini Bag 100 ML IVPB SCH ×2 (05:24→17:57)
[2021-05-28] MEDS: Famotidine 20 MG TABLET PO SCH ×2 (05:25→16:28)
[2021-05-28 06:16] LABS: Basophils % 0.3 %; Hemoglobin 12.1 g/dL (12.9-16.9); Immature Granulocytes % 2.8 % (0-4); Lymphocytes % 6.3 %; Mean Corpuscular HGB Conc 31.8 g/dL (31.6-35.5); Mean Corpuscular Hemoglobin 28.4 pg (28.0-33.3); Mean Corpuscular Volume 89.2 fL (83.0-100.0); Monocytes % 6.6 %; Platelet Count 362 K/mcL (140-400); Red Blood Count 4.26 M/mcL (4.19-5.50); Red Cell Distribution Width 19.1 % (11.5-14.5); White Blood Count 15.5 K/mcL (4.3-11.1)
[2021-05-28] MEDS: *HR* Heparin 5,000 UNIT/ML VIAL SQ SCH ×3 (06:28→21:25)
[2021-05-28 06:33] LABS: BUN/Creatinine Ratio 47 (6-26); Blood Urea Nitrogen 26 mg/dL (6-20); Calcium 8.8 mg/dL (8.6-10.3); Carbon Dioxide 27 mEq/L (23-29); Chloride 104 mEq/L (98-107); Glucose 116 mg/dL (70-105); Osmolality,Calculated 292 (280-300); Potassium 4.3 mEq/L (3.5-5.1); Sodium 138 mEq/L (136-145); eGFR For African Americans > 60 (> 60); eGFR For Non-African Americans > 60 (> 60)
[2021-05-28] MEDS: Gabapentin 400 MG CAPSULE PO SCH ×3 (07:51→20:15)
[2021-05-28] MEDS: QUEtiapine Fumarate 25 MG TABLET PO SCH (07:52)
[2021-05-28] MEDS: Ondansetron 4 MG/2 ML VIAL IVP PRN (07:52)
[2021-05-28] MEDS: carvediloL 6.25 MG TABLET PO SCH ×2 (07:53→16:26)
[2021-05-28] MEDS: tiZANidine 4 MG TABLET PO PRN ×2 (08:00→18:19)
[2021-05-28] MEDS: Nicotine 21 MG PATCH.TD24 TD SCH (08:01)
[2021-05-28] MEDS: Sennosides/Docusate Sodium TABLET PO SCH ×2 (08:02→20:16)
[2021-05-28] MEDS: polyethylene glycoL 3350 17 GM POWD.PACK PO SCH (08:02)
[2021-05-28] MEDS: clonazePAM 1 MG TABLET PO PRN (12:02)
[2021-05-28] MEDS: Dexmedetomidine HCl 400 MCG/100 ML MLS IVC SCH (17:56)
[2021-05-28] MEDS: QUEtiapine Fumarate 100 MG TABLET PO SCH (20:16)
[2021-05-28] MEDS: cloNIDine HCL 0.1 MG TABLET PO SCH (20:16)
[2021-05-28] MEDS: Ibuprofen 400 MG TABLET PO PRN (22:18)
[2021-05-29] MEDS: *HR* LORazepam 2 MG/ML VIAL IVP PRN ×5 (00:17→20:54)
[2021-05-29] MEDS: MethylPREDNISolone 40 MG/ML VIAL IVP SCH ×2 (00:18→05:13)
[2021-05-29] MEDS: Meropenem 1,000 MG in 0.9 % Sodium Chloride Mini Bag 100 ML IVPB SCH ×3 (02:09→18:21)
[2021-05-29] MEDS: tiZANidine 4 MG TABLET PO PRN (02:11)
[2021-05-29 02:36] LABS: Basophils % 0.2 %; Eosinophils % 0.1 %; Immature Granulocytes % 3.4 % (0-4); Monocytes % 10.9 %
[2021-05-29 02:38] LABS: Basophils # 0.1 K/mcL (0.0-0.2); Hematocrit 38.5 % (37.5-50.1); Hemoglobin 12.5 g/dL (12.9-16.9); Lymphocytes # 2.2 K/mcL (0.6-4.6); Lymphocytes % 8.4 %; Mean Corpuscular HGB Conc 32.5 g/dL (31.6-35.5); Mean Corpuscular Hemoglobin 28.9 pg (28.0-33.3); Mean Corpuscular Volume 89.1 fL (83.0-100.0); Monocytes # 2.8 K/mcL (0.0-1.3); Neutrophils # 19.9 K/mcL (1.6-8.9); Platelet Count 314 K/mcL (140-400); Red Blood Count 4.32 M/mcL (4.19-5.50); Red Cell Distribution Width 19.6 % (11.5-14.5); White Blood Count 25.8 K/mcL (4.3-11.1)
[2021-05-29 02:56] LABS: BUN/Creatinine Ratio 32 (6-26); Blood Urea Nitrogen 28 mg/dL (6-20); Calcium 9.4 mg/dL (8.6-10.3); Carbon Dioxide 29 mEq/L (23-29); Chloride 100 mEq/L (98-107); Glucose 94 mg/dL (70-105); Osmolality,Calculated 287 (280-300); Potassium 4.4 mEq/L (3.5-5.1); Sodium 136 mEq/L (136-145); eGFR For African Americans > 60 (> 60); eGFR For Non-African Americans > 60 (> 60)
[2021-05-29] MEDS: Famotidine 20 MG TABLET PO SCH ×2 (05:12→17:10)
[2021-05-29] MEDS: Doxycycline 100 MG in 0.9 % Sodium Chloride Mini Bag 100 ML IVPB SCH ×2 (05:13→16:29)
[2021-05-29] MEDS: *HR* Heparin 5,000 UNIT/ML VIAL SQ SCH ×3 (05:14→23:35)
[2021-05-29] MEDS: Acetaminophen 325 MG TABLET PO PRN ×3 (05:34→21:49)
[2021-05-29] MEDS: Gabapentin 400 MG CAPSULE PO SCH (08:14)
[2021-05-29] MEDS: cloNIDine HCL 0.1 MG TABLET PO SCH ×3 (08:14→20:52)
[2021-05-29] MEDS: QUEtiapine Fumarate 25 MG TABLET PO SCH (08:14)
[2021-05-29] MEDS: carvediloL 6.25 MG TABLET PO SCH ×2 (08:14→16:21)
[2021-05-29] MEDS: polyethylene glycoL 3350 17 GM POWD.PACK PO SCH (08:15)
[2021-05-29] MEDS: Sennosides/Docusate Sodium TABLET PO SCH ×2 (08:15→23:28)
[2021-05-29] MEDS: Nicotine 21 MG PATCH.TD24 TD SCH (08:16)
[2021-05-29] MEDS: clonazePAM 1 MG TABLET PO PRN (17:10)
[2021-05-29] MEDS ORDERED: *HR* LORazepam 2 MG/ML VIAL IVP ONE ×2 (17:54→17:57)
[2021-05-29] MEDS: QUEtiapine Fumarate 100 MG TABLET PO SCH (20:52)
[2021-05-29] MEDS ORDERED: 0.9 % Sodium Chloride 1,000 ML ONE (22:18)
[2021-05-29] MEDS ORDERED: Ketorolac 15 MG/ML VIAL IVP ONE (23:30)
[2021-05-29] MEDS ORDERED: Aspirin 325 MG TABLET PO ONE (23:30)
[2021-05-29] MEDS ORDERED: 0.9 % Sodium Chloride 1,000 ML IVC ONE (23:30)
[2021-05-30] MEDS: Meropenem 1,000 MG in 0.9 % Sodium Chloride Mini Bag 100 ML IVPB SCH ×2 (02:57→08:38)
[2021-05-30 03:32] LABS: Basophils % 0.2 %; Eosinophils # 0.1 K/mcL (0.0-0.6); Eosinophils % 0.4 %; Hematocrit 41.3 % (37.5-50.1); Immature Granulocytes % 2.6 % (0-4); Lymphocytes # 2.5 K/mcL (0.6-4.6); Lymphocytes % 10.8 %; Mean Corpuscular HGB Conc 31.5 g/dL (31.6-35.5); Mean Corpuscular Hemoglobin 28.2 pg (28.0-33.3); Mean Corpuscular Volume 89.6 fL (83.0-100.0); Mean Platelet Volume 9.7 fL (9.4-12.4); Monocytes % 8.6 %; Neutrophils # 17.5 K/mcL (1.6-8.9); Platelet Count 175 K/mcL (140-400); Red Blood Count 4.61 M/mcL (4.19-5.50); Red Cell Distribution Width 19.9 % (11.5-14.5); Segmented Neutrophils % 77.4 %; White Blood Count 22.7 K/mcL (4.3-11.1)
[2021-05-30 03:42] LABS: BUN/Creatinine Ratio 30 (6-26); Blood Urea Nitrogen 26 mg/dL (6-20); Calcium 8.6 mg/dL (8.6-10.3); Carbon Dioxide 28 mEq/L (23-29); Chloride 103 mEq/L (98-107); Glucose 91 mg/dL (70-105); Osmolality,Calculated 290 (280-300); Potassium 4.1 mEq/L (3.5-5.1); Sodium 138 mEq/L (136-145); eGFR For African Americans > 60 (> 60); eGFR For Non-African Americans > 60 (> 60)
[2021-05-30] MEDS ORDERED: 0.9 % Sodium Chloride 500 ML IVC ONE (04:12)
[2021-05-30] MEDS: *HR* Heparin 5,000 UNIT/ML VIAL SQ SCH (06:21)
[2021-05-30] MEDS: Doxycycline 100 MG in 0.9 % Sodium Chloride Mini Bag 100 ML IVPB SCH (06:21)
[2021-05-30] MEDS: Famotidine 20 MG TABLET PO SCH (06:21)
[2021-05-30 06:33] VITALS: O2SAT 95
[2021-05-30] MEDS: cloNIDine HCL 0.1 MG TABLET PO SCH (08:37)
[2021-05-30] MEDS: QUEtiapine Fumarate 25 MG TABLET PO SCH (08:37)
[2021-05-30] MEDS: carvediloL 6.25 MG TABLET PO SCH (08:37)
[2021-05-30] MEDS: *HR* LORazepam 2 MG/ML VIAL IVP PRN (08:38)
[2021-05-30] MEDS: Sennosides/Docusate Sodium TABLET PO SCH (08:39)
[2021-05-30] MEDS: polyethylene glycoL 3350 17 GM POWD.PACK PO SCH (08:39)
[2021-05-30] MEDS: Ibuprofen 400 MG TABLET PO PRN (08:41)
[2021-05-30 08:51] VITALS: BP 131/88; PULSE 96; TEMP 97.7
[2021-05-30] MEDS ORDERED: predniSONE 20 MG TABLET PO SCH ×2 (09:00)
[2021-05-30] MEDS ORDERED: *HR* LORazepam 2 MG/ML VIAL IVP PRN (10:10)
[2021-05-30] MEDS: Nicotine 21 MG PATCH.TD24 TD SCH (11:08)
[2021-05-30] MEDS: clonazePAM 1 MG TABLET PO PRN (11:09)
[2021-05-31 10:18] LABS: Acinetobacter baumannii by PCR Not Detected (Not Detect); Candida albicans by PCR Not Detected (Not Detect); Candida glabrata by PCR Not Detected (Not Detect); Candida krusei by PCR Not Detected (Not Detect); Candida parapsilosis by PCR Not Detected (Not Detect); Candida tropicalis by PCR DETECTED (Not Detect); Enterobacter cloacae Cmplx PCR Not Detected (Not Detect); Enterobacteriaceae by PCR Not Detected (Not Detect); Enterococcus by PCR Not Detected (Not Detect); Escherichia coli by PCR Not Detected (Not Detect); Klebsiella oxytoca by PCR Not Detected (Not Detect); Klebsiella pneumoniae by PCR Not Detected (Not Detect); Proteus by PCR Not Detected (Not Detect); Pseudomonas aeruginosa by PCR Not Detected (Not Detect); Serratia marcescens by PCR Not Detected (Not Detect); Staphylococcus aureus by PCR Not Detected (Not Detect); Staphylococcus by PCR Not Detected (Not Detect); Streptococcus agalactiae(B)PCR Not Detected (Not Detect); Streptococcus by PCR Not Detected (Not Detect); Streptococcus pneumoniae PCR Not Detected (Not Detect); Streptococcus pyogenes (A) PCR Not Detected (Not Detect)
[2021-06-01 19:42] LABS: Acinetobacter baumannii by PCR Not Detected (Not Detect); Candida albicans by PCR Not Detected (Not Detect); Candida glabrata by PCR Not Detected (Not Detect); Candida krusei by PCR Not Detected (Not Detect); Candida parapsilosis by PCR Not Detected (Not Detect); Candida tropicalis by PCR Not Detected (Not Detect); Enterobacter cloacae Cmplx PCR Not Detected (Not Detect); Enterobacteriaceae by PCR Not Detected (Not Detect); Enterococcus by PCR Not Detected (Not Detect); Escherichia coli by PCR Not Detected (Not Detect); Klebsiella oxytoca by PCR Not Detected (Not Detect); Klebsiella pneumoniae by PCR Not Detected (Not Detect); Proteus by PCR Not Detected (Not Detect); Pseudomonas aeruginosa by PCR Not Detected (Not Detect); Serratia marcescens by PCR Not Detected (Not Detect); Staphylococcus aureus by PCR Not Detected (Not Detect); Staphylococcus by PCR Not Detected (Not Detect); Streptococcus agalactiae(B)PCR Not Detected (Not Detect); Streptococcus by PCR Not Detected (Not Detect); Streptococcus pneumoniae PCR Not Detected (Not Detect); Streptococcus pyogenes (A) PCR Not Detected (Not Detect); mecA Methicillin-Resist Gene Not Detected (Not Detect); vanA/B Vancomycin-Resist Genes Not Detected (Not Detect)
== END 2021-05-30 12:45 | disposition left against medical advice (07) | DRG 710 ==
LOC: EMEROOARM 16:38 → 3BNU 16:38 → SUATTDRO 04-29 03:57 → 2NNU 04-30 15:37 → 3NENU 05-07 20:33 → 2NNU 05-16 02:06 → 3NENU 05-21 13:35
PROVIDERS: ADMIT Student in an Organized Health Care Education/Training Program; ATTEND Internal Medicine

== ENCOUNTER 2021-10-06 17:12 | Inpatient (IN) ==
[2021-10-06] MEDS ORDERED: Ketorolac 30 MG/ML VIAL IVP ONE (17:37)
[2021-10-06] MEDS ORDERED: Gadolinium Contrast Agent (WT Based) IV PRN (17:37)
[2021-10-06] MEDS ORDERED: *HR* LORazepam 0.5 MG TABLET PO ONE (17:55)
[2021-10-06 18:05] LABS: Basophils % 0.4 %; Eosinophils # 0.2 K/mcL (0.0-0.6); Eosinophils % 1.9 %; Hematocrit 50.9 % (37.5-50.1); Hemoglobin 16.4 g/dL (12.9-16.9); Immature Granulocytes % 0.2 % (0-4); Lymphocytes # 2.8 K/mcL (0.6-4.6); Mean Corpuscular HGB Conc 32.2 g/dL (31.6-35.5); Mean Corpuscular Hemoglobin 27.1 pg (28.0-33.3); Mean Platelet Volume 8.9 fL (9.4-12.4); Monocytes # 0.7 K/mcL (0.0-1.3); Monocytes % 8.8 %; Neutrophils # 4.7 K/mcL (1.6-8.9); Platelet Count 417 K/mcL (140-400); Red Blood Count 6.06 M/mcL (4.19-5.50); Red Cell Distribution Width 14.6 % (11.5-14.5); Segmented Neutrophils % 55.7 %; White Blood Count 8.5 K/mcL (4.3-11.1)
[2021-10-06 18:22] LABS: Alanine Aminotransferase 55 Units/L (7-52); Albumin/Globulin Ratio 1.1 (1.1-2.2); Alkaline Phosphatase 101 Units/L (34-104); Aspartate Amino Transferase 32 Units/L (13-39); BUN/Creatinine Ratio 15 (6-26); Bilirubin,Total 0.4 mg/dL (0.3-1.0); Blood Urea Nitrogen 13 mg/dL (6-20); C-Reactive Protein < 5 mg/L (Less than 10); Calcium 9.3 mg/dL (8.6-10.3); Carbon Dioxide 26 mEq/L (23-29); Chloride 104 mEq/L (98-107); Globulin 3.8 g/dL (2.4-3.5); Glucose 98 mg/dL (70-105); Osmolality,Calculated 284 (280-300); Potassium 4.1 mEq/L (3.5-5.1); Sodium 137 mEq/L (136-145); Total Protein 7.8 g/dL (6.4-8.9); eGFR For African Americans > 60 (> 60); eGFR For Non-African Americans > 60 (> 60)
[2021-10-06] MEDS ORDERED: GADOBUTROL 30 MMOL/30 ML VIAL IVP ONE (18:24)
[2021-10-06] MEDS ORDERED: cefTRIAXone 1,000 MG in 0.9 % Sodium Chloride 10 ML IVP ONE (21:11)
[2021-10-06] MEDS ORDERED: Melatonin 3 MG TABLET PO PRN (23:20)
[2021-10-06] MEDS ORDERED: Ondansetron 4 MG/2 ML VIAL IVP PRN (23:20)
[2021-10-06] MEDS ORDERED: Naloxone 0.4 MG/ML INJ IVP PRN (23:20)
[2021-10-06] MEDS ORDERED: Acetaminophen 325 MG TABLET PO PRN (23:20)
[2021-10-07] MEDS ORDERED: 0.9 % Sodium Chloride 1,000 ML IVC ONE (00:38)
[2021-10-07] MEDS ORDERED: *HR* Buprenorphine HCl 8 MG TAB.SUBL SL ONE (00:45)
[2021-10-07] MEDS: Nicotine 21 MG PATCH.TD24 TD SCH (00:53)
[2021-10-07 05:20] LABS: Basophils % 0.3 %; Eosinophils # 0.2 K/mcL (0.0-0.6); Hematocrit 43.3 % (37.5-50.1); Immature Granulocytes % 0.3 % (0-4); Lymphocytes # 3.4 K/mcL (0.6-4.6); Lymphocytes % 37.7 %; Mean Corpuscular HGB Conc 32.8 g/dL (31.6-35.5); Mean Corpuscular Hemoglobin 27.6 pg (28.0-33.3); Mean Corpuscular Volume 84.1 fL (83.0-100.0); Monocytes # 0.9 K/mcL (0.0-1.3); Monocytes % 9.5 %; Neutrophils # 4.5 K/mcL (1.6-8.9); Platelet Count 388 K/mcL (140-400); Red Blood Count 5.15 M/mcL (4.19-5.50); Red Cell Distribution Width 14.7 % (11.5-14.5); Segmented Neutrophils % 50.2 %; White Blood Count 8.9 K/mcL (4.3-11.1)
[2021-10-07 05:21] LABS: Prothrombin Time 11.6 Seconds (9.4-12.1)
[2021-10-07 05:24] LABS: Activated Partial Thrombo Time 30.1 Seconds (26.0-36.0)
[2021-10-07 05:26] LABS: Hemoglobin 14.2 g/dL (12.9-16.9)
[2021-10-07 05:36] LABS: Alanine Aminotransferase 46 Units/L (7-52); Albumin 3.4 g/dL (3.5-5.7); Albumin/Globulin Ratio 1.1 (1.1-2.2); Alkaline Phosphatase 83 Units/L (34-104); Aspartate Amino Transferase 26 Units/L (13-39); BUN/Creatinine Ratio 21 (6-26); Bilirubin,Total 0.3 mg/dL (0.3-1.0); Blood Urea Nitrogen 18 mg/dL (6-20); Calcium 8.4 mg/dL (8.6-10.3); Carbon Dioxide 22 mEq/L (23-29); Chloride 108 mEq/L (98-107); Glucose 96 mg/dL (70-105); Magnesium 2.2 mg/dL (1.6-2.6); Osmolality,Calculated 286 (280-300); Potassium 3.9 mEq/L (3.5-5.1); Sodium 137 mEq/L (136-145); Total Protein 6.4 g/dL (6.4-8.9); eGFR For African Americans > 60 (> 60); eGFR For Non-African Americans > 60 (> 60)
[2021-10-07] MEDS ORDERED: *HR* FentaNYL (PF) 100 MCG/2 ML VIAL IVP ONE (14:13)
[2021-10-07] MEDS ORDERED: *HR* Midazolam HCl 2 MG/2 ML VIAL IVP ONE (14:13)
[2021-10-07] MEDS ORDERED: 0.9 % Sodium Chloride 500 ML ONE (14:16)
[2021-10-07] MEDS: *HR* OxyCODONE/APAP 7.5/325 TABLET PO PRN (16:04)
[2021-10-07] MEDS: *HR* HYDROmorphone 2 MG/ML SYRINGE IVP PRN (18:13)
[2021-10-07] MEDS: Gabapentin 400 MG CAPSULE PO SCH (20:26)
[2021-10-07] MEDS: QUEtiapine Fumarate 300 MG TABLET PO SCH (20:26)
[2021-10-08 00:32] LABS: Source of Body Fluid Disc aspiration
[2021-10-08] MEDS: Nicotine 21 MG PATCH.TD24 TD SCH (00:39)
[2021-10-08 00:41] LABS: Appearance of Body Fluid Cloudy (Clear); Volume of Body Fluid 8 mL
[2021-10-08 06:41] LABS: Basophils % 0.4 %; Eosinophils # 0.3 K/mcL (0.0-0.6); Eosinophils % 4.1 %; Hematocrit 44.5 % (37.5-50.1); Hemoglobin 14.7 g/dL (12.9-16.9); Immature Granulocytes % 0.3 % (0-4); Lymphocytes # 2.4 K/mcL (0.6-4.6); Lymphocytes % 29.5 %; Mean Corpuscular Hemoglobin 27.9 pg (28.0-33.3); Mean Corpuscular Volume 84.4 fL (83.0-100.0); Mean Platelet Volume 8.9 fL (9.4-12.4); Monocytes # 0.8 K/mcL (0.0-1.3); Monocytes % 10.3 %; Neutrophils # 4.4 K/mcL (1.6-8.9); Platelet Count 383 K/mcL (140-400); Red Blood Count 5.27 M/mcL (4.19-5.50); Red Cell Distribution Width 14.8 % (11.5-14.5); Segmented Neutrophils % 55.4 %
[2021-10-08 07:39] LABS: BUN/Creatinine Ratio 27 (6-26); Blood Urea Nitrogen 20 mg/dL (6-20); Calcium 8.3 mg/dL (8.6-10.3); Carbon Dioxide 27 mEq/L (23-29); Chloride 106 mEq/L (98-107); Glucose 99 mg/dL (70-105); Osmolality,Calculated 289 (280-300); Potassium 3.8 mEq/L (3.5-5.1); Sodium 138 mEq/L (136-145); eGFR For African Americans > 60 (> 60); eGFR For Non-African Americans > 60 (> 60)
[2021-10-08] MEDS: lamoTRIgine 100 MG TABLET PO SCH (10:28)
[2021-10-08] MEDS: Gabapentin 400 MG CAPSULE PO SCH ×2 (10:28→20:00)
[2021-10-08] MEDS: Cholecalciferol (D-3) 1,000 UNIT (25MCG) TABLET PO SCH (10:28)
[2021-10-08] MEDS: Metoprolol XL (24 HR) Succ 50 MG TAB.ER.24H PO SCH (10:28)
[2021-10-08] MEDS: *HR* OxyCODONE/APAP 7.5/325 TABLET PO PRN (17:18)
[2021-10-08] MEDS: *HR* HYDROmorphone 2 MG/ML SYRINGE IVP PRN (20:00)
[2021-10-08] MEDS: QUEtiapine Fumarate 300 MG TABLET PO SCH (20:00)
[2021-10-09] MEDS: Nicotine 21 MG PATCH.TD24 TD SCH (00:45)
[2021-10-09] MEDS: *HR* HYDROmorphone 2 MG/ML SYRINGE IVP PRN ×3 (03:00→18:49)
[2021-10-09 04:49] LABS: Basophils % 0.3 %; Eosinophils # 0.5 K/mcL (0.0-0.6); Eosinophils % 6.9 %; Hematocrit 43.5 % (37.5-50.1); Hemoglobin 13.7 g/dL (12.9-16.9); Immature Granulocytes % 0.3 % (0-4); Lymphocytes # 2.4 K/mcL (0.6-4.6); Lymphocytes % 34.3 %; Mean Corpuscular HGB Conc 31.5 g/dL (31.6-35.5); Mean Corpuscular Hemoglobin 27.1 pg (28.0-33.3); Mean Platelet Volume 9.1 fL (9.4-12.4); Monocytes # 0.7 K/mcL (0.0-1.3); Monocytes % 10.4 %; Neutrophils # 3.3 K/mcL (1.6-8.9); Platelet Count 351 K/mcL (140-400); Red Blood Count 5.06 M/mcL (4.19-5.50); Red Cell Distribution Width 14.7 % (11.5-14.5); Segmented Neutrophils % 47.8 %; White Blood Count 6.9 K/mcL (4.3-11.1)
[2021-10-09 05:00] LABS: BUN/Creatinine Ratio 23 (6-26); Blood Urea Nitrogen 19 mg/dL (6-20); Calcium 8.3 mg/dL (8.6-10.3); Carbon Dioxide 23 mEq/L (23-29); Chloride 107 mEq/L (98-107); Glucose 139 mg/dL (70-105); Magnesium 1.7 mg/dL (1.6-2.6); Osmolality,Calculated 289 (280-300); Potassium 3.5 mEq/L (3.5-5.1); Sodium 137 mEq/L (136-145); eGFR For African Americans > 60 (> 60); eGFR For Non-African Americans > 60 (> 60)
[2021-10-09] MEDS: Gabapentin 400 MG CAPSULE PO SCH ×2 (08:51→21:23)
[2021-10-09] MEDS: lamoTRIgine 100 MG TABLET PO SCH (08:51)
[2021-10-09] MEDS: Metoprolol XL (24 HR) Succ 50 MG TAB.ER.24H PO SCH (08:51)
[2021-10-09] MEDS: Cholecalciferol (D-3) 1,000 UNIT (25MCG) TABLET PO SCH (08:51)
[2021-10-09] MEDS ORDERED: Famotidine 20 MG/2 ML VIAL IVP ONE (09:15)
[2021-10-09] MEDS ORDERED: HydrOXYzine 100 MG/2 ML VIAL IM ONE (16:24)
[2021-10-09] MEDS ORDERED: polyethylene glycoL 3350 17 GM POWD.PACK PO PRN (18:58)
[2021-10-09] MEDS: Sennosides/Docusate Sodium TABLET PO SCH (21:24)
[2021-10-09] MEDS: QUEtiapine Fumarate 300 MG TABLET PO SCH (21:24)
[2021-10-10] MEDS: Nicotine 21 MG PATCH.TD24 TD SCH (00:50)
[2021-10-10] MEDS: *HR* OxyCODONE/APAP 7.5/325 TABLET PO PRN ×3 (00:54→22:53)
[2021-10-10 04:24] LABS: Basophils % 0.5 %; Eosinophils # 0.6 K/mcL (0.0-0.6); Eosinophils % 9.4 %; Hematocrit 38.1 % (37.5-50.1); Hemoglobin 12.5 g/dL (12.9-16.9); Immature Granulocytes % 0.5 % (0-4); Lymphocytes # 2.1 K/mcL (0.6-4.6); Lymphocytes % 31.9 %; Mean Corpuscular HGB Conc 32.8 g/dL (31.6-35.5); Mean Corpuscular Volume 85.2 fL (83.0-100.0); Mean Platelet Volume 9.5 fL (9.4-12.4); Monocytes # 0.7 K/mcL (0.0-1.3); Monocytes % 11.1 %; Platelet Count 317 K/mcL (140-400); Red Blood Count 4.47 M/mcL (4.19-5.50); Red Cell Distribution Width 14.7 % (11.5-14.5); Segmented Neutrophils % 46.6 %; White Blood Count 6.5 K/mcL (4.3-11.1)
[2021-10-10 04:40] LABS: BUN/Creatinine Ratio 15 (6-26); Blood Urea Nitrogen 13 mg/dL (6-20); Carbon Dioxide 25 mEq/L (23-29); Chloride 107 mEq/L (98-107); Glucose 131 mg/dL (70-105); Magnesium 1.7 mg/dL (1.6-2.6); Osmolality,Calculated 290 (280-300); Potassium 3.5 mEq/L (3.5-5.1); Sodium 139 mEq/L (136-145); eGFR For African Americans > 60 (> 60); eGFR For Non-African Americans > 60 (> 60)
[2021-10-10] MEDS: Sennosides/Docusate Sodium TABLET PO SCH ×2 (07:49→19:53)
[2021-10-10] MEDS: Metoprolol XL (24 HR) Succ 50 MG TAB.ER.24H PO SCH (07:49)
[2021-10-10] MEDS: Gabapentin 400 MG CAPSULE PO SCH ×2 (07:50→19:52)
[2021-10-10] MEDS: Cholecalciferol (D-3) 1,000 UNIT (25MCG) TABLET PO SCH (07:50)
[2021-10-10] MEDS: *HR* HYDROmorphone 2 MG/ML SYRINGE IVP PRN ×3 (07:50→19:53)
[2021-10-10] MEDS: QUEtiapine Fumarate 300 MG TABLET PO SCH (19:52)
[2021-10-10] MEDS ORDERED: Ringers Solution, Lactated 500 ML IVC ONE (23:09)
[2021-10-11] MEDS: Nicotine 21 MG PATCH.TD24 TD SCH (01:15)
[2021-10-11] MEDS: *HR* OxyCODONE/APAP 7.5/325 TABLET PO PRN ×4 (05:29→23:24)
[2021-10-11 05:55] LABS: Basophils % 0.2 %; Eosinophils # 0.7 K/mcL (0.0-0.6); Eosinophils % 8.3 %; Hematocrit 39.2 % (37.5-50.1); Hemoglobin 12.3 g/dL (12.9-16.9); Immature Granulocytes % 0.7 % (0-4); Lymphocytes # 2.1 K/mcL (0.6-4.6); Lymphocytes % 25.5 %; Mean Corpuscular HGB Conc 31.4 g/dL (31.6-35.5); Mean Corpuscular Hemoglobin 26.6 pg (28.0-33.3); Mean Corpuscular Volume 84.8 fL (83.0-100.0); Mean Platelet Volume 9.4 fL (9.4-12.4); Monocytes % 12.1 %; Neutrophils # 4.3 K/mcL (1.6-8.9); Platelet Count 341 K/mcL (140-400); Red Blood Count 4.62 M/mcL (4.19-5.50); Red Cell Distribution Width 14.7 % (11.5-14.5); Segmented Neutrophils % 53.2 %
[2021-10-11 06:15] LABS: BUN/Creatinine Ratio 19 (6-26); Blood Urea Nitrogen 12 mg/dL (6-20); Calcium 8.2 mg/dL (8.6-10.3); Carbon Dioxide 26 mEq/L (23-29); Chloride 108 mEq/L (98-107); Glucose 87 mg/dL (70-105); Magnesium 1.7 mg/dL (1.6-2.6); Osmolality,Calculated 291 (280-300); Potassium 3.4 mEq/L (3.5-5.1); Sodium 141 mEq/L (136-145); eGFR For African Americans > 60 (> 60); eGFR For Non-African Americans > 60 (> 60)
[2021-10-11] MEDS: Cholecalciferol (D-3) 1,000 UNIT (25MCG) TABLET PO SCH (09:24)
[2021-10-11] MEDS: Sennosides/Docusate Sodium TABLET PO SCH ×2 (09:24→21:49)
[2021-10-11] MEDS: Metoprolol XL (24 HR) Succ 50 MG TAB.ER.24H PO SCH (09:24)
[2021-10-11] MEDS: *HR* HYDROmorphone 2 MG/ML SYRINGE IVP PRN ×3 (09:24→21:49)
[2021-10-11] MEDS: Gabapentin 400 MG CAPSULE PO SCH ×2 (09:24→20:55)
[2021-10-11 19:28] VITALS: TEMP 98.1
[2021-10-11] MEDS: QUEtiapine Fumarate 300 MG TABLET PO SCH (20:55)
[2021-10-12] MEDS: Nicotine 21 MG PATCH.TD24 TD SCH ×2 (03:08→07:31)
[2021-10-12] MEDS: *HR* OxyCODONE/APAP 7.5/325 TABLET PO PRN ×2 (05:53→10:29)
[2021-10-12 06:38] VITALS: BP 116/73; PULSE 104; O2SAT 97
[2021-10-12] MEDS: Cholecalciferol (D-3) 1,000 UNIT (25MCG) TABLET PO SCH (07:33)
[2021-10-12] MEDS: Metoprolol XL (24 HR) Succ 50 MG TAB.ER.24H PO SCH (07:33)
[2021-10-12] MEDS: Gabapentin 400 MG CAPSULE PO SCH (07:33)
[2021-10-12] MEDS: Sennosides/Docusate Sodium TABLET PO SCH (07:34)
== END 2021-10-12 15:37 | disposition home or self-care (01) | DRG 344 ==
LOC: 4WAOSI 17:12 → EMEROOARM 17:12 → SUATTDRO 21:31 → 4WAOSI 22:07
PROVIDERS: ADMIT Internal Medicine; ATTEND Pharmacist
PROC: IRFLUID (2021-10-07 12:00)